=== PATIENT | female | born 2005 | race Caucasian/White ===

== ENCOUNTER 2024-08-20 11:32 | Emergency (ER) | payer MEDICAID, SELFPAY ==
[2024-08-20 11:40] VITALS: BP 113/76; PULSE 106; RESP 20; TEMP 37.5; O2SAT 98; BMI 17.7
--- NOTE | 2024-08-20 11:57 | ED.GENADULT ---
HPI - General Adult General Chief complaint: Ear/Nose/Throat Problem Stated complaint: body aches, sore throat, stuffy nose Time Seen by Provider: 08/20/24 11:37 History of Present Illness HPI narrative: This 18-year-old female comes in because of feeling upper respiratory symptoms for the past 3 weeks. She states that it began on the 28 of July with cough, body aches and pains, fever to 104? F, nasal congestion. She is no longer had any fevers but continues to have these other symptoms. She arrives here with normal vital signs except her heart rate is borderline tachycardic. She does not report shortness of breath. Related Data Home Medications ?Medication ?Instructions ?Recorded ?Confirmed No Known Home Medications 08/20/24 08/20/24 Previous Rx's ?Medication ?Instructions ?Recorded acetaminophen 300 mg-codeine 30 mg 1 tab PO Q6H PRN pain #15 tabs 08/20/24 tablet Allergies Allergy/AdvReac Type Severity Reaction Status Date / Time No Known Drug Allergies Allergy Verified 08/20/24 11:40 Review of Systems Status of ROS: Reports: 10 or more systems reviewed and unremarkable except as noted in History and below Narrative: Constitutional: No fevers, no weight gain or loss. Eyes: No discharge. No vision changes. HENT: No ear pain. Sore throat and nasal congestion. Cardiovascular: No chest pain, no palpitations. Respiratory: No shortness of breath, no wheezes. Persistent cough. Gastrointestinal: No abdominal pain, no vomiting, no diarrhea. Genitourinary: No dysuria, no hematuria. Musculoskeletal: Normal range of motion. Skin: No rashes, no pruritis. Neurological: No dizziness, weakness, sensory change, speech change. Endo/Heme/Allergies: No bruising or bleeding. No polydipsia. Pysch: no suicidality, no anxiety, no insomnia. All other systems reviewed and are negative. PFSH PFSH Social History Smoking Status: Current every day smoker Do you use any of these nicotine containing products: Vaping Products Second hand tobacco smoke exposure: No How often do you have a drink containing alcohol: never How often do you have six or more drinks on one occasion: Never AUDIT-C Alcohol total score: 0 Non-prescribed substance use: denies use service: No Exam Narrative: Exam Narrative: Constitutional: Well-developed, well-nourished, no acute distress. HEENT: Normocephalic, atraumatic. Pharyngeal erythema without exudate or tonsillar hypertrophy. Neck: Normal range of motion. Nontender. Supple. Heart: Regular. No murmurs. Normal rate. Intact distal pulses. Lungs: Clear to auscultation. No chest discomfort. No wheezes, rhonchi, or rales. Abdomen: Normal bowel sounds. Nontender. No rebound tenderness. Genitalia: Deferred. Back: No midline tenderness. Normal range of motion. Extremities: Normal range of motion. No injury. Skin: Intact. No rash. Warm. No erythema or pallor. Neurologic: No altered sensation. No weakness. Alert and oriented. Psychiatric: No suicidality. No anxiety or depression. No insomnia. Nursing notes and vitals signs are reviewed. Const: Vital Signs, click to edit/add: Vital Signs - 24 hr 08/20/24 11:40 Temperature 99.5 F Pulse Rate [Pulse Oximeter] 106 H Respiratory Rate 20 Blood Pressure [Ri ght Upper Arm] 113/76 Pulse Oximetry 98 Oxygen Delivery Me thod Room Air Course Vital Signs Vital signs: Initial Vital Signs Temperature 99.5 F 08/20/24 11:40 Temperature Source Temporal Artery Scan 08/20/24 11:40 Pulse Rate 106 H 08/20/24 11:40 Pulse Rhythm Regular 08/20/24 11:40 Respiratory Rate 20 08/20/24 11:40 Blood Pressure 113/76 08/20/24 11:40 Blood Pressure Mean 88 08/20/24 11:40 Blood Pressure Position Sitting 08/20/24 11:40 Pulse Oximetry 98 08/20/24 11:40 Oxygen Delivery Method Room Air 08/20/24 11:40 Vital Signs Temperature 99.5 F 08/20/24 11:40 Pulse Rate 106 H 08/20/24 11:40 Respiratory Rate 20 08/20/24 11:40 Blood Pressure 113/76 08/20/24 11:40 Pulse Oximetry 98 08/20/24 11:40 Oxygen Delivery Method Room Air 08/20/24 11:40 Temperature 99.5 F 08/20/24 11:40 Pulse Rate 106 H 08/20/24 11:40 Respiratory Rate 20 08/20/24 11:40 Blood Pressure 113/76 08/20/24 11:40 Pulse Oximetry 98 08/20/24 11:40 Oxygen Delivery Method Room Air 08/20/24 11:40 Medications Administered Medications: Discontinued Medications Generic Name Dose Route Start Last Admin Trade Name Floyd PRN Reason Stop Dose Admin Dexamethasone 10 mg 08/20/24 11:57 08/20/24 12:14 Dexamethasone 10 Mg/Ml Inj PO 08/20/24 11:58 10 mg ONCE ONE Administration Medical Decision Making MDM Narrative Medical decision making narrative: This patient comes in with upper respiratory symptoms for the past 3 weeks. Nasal pharyngeal swab is positive for influenza A. The patient did receive an oral dose of dexamethasone here. I recommended using [id number] medicines as needed and directed. I did prescribe a few tablets of Tylenol 3 for additional cough suppressant in pain relief. Lab Data Labs: Lab Results 08/20/24 Range/Units 11:30 SARS-CoV-2 (PCR) Negative SARS-CoV-2 (Negative) Influenza Type A (PCR) POSITIVE PCR FLU A A (Negative) Influenza Type B (PCR) Negative PCR FLU B (Negative) RSV (PCR) Negative PCR RSV (Negative) Discharge Plan Discharge Clinical Impression: Influenza A Patient Disposition: Home, Self-Care Condition: Stable Additional Instructions: Take medication as needed and directed. Follow up with MD or return if worsening. Prescriptions: New acetaminophen-codeine 300-30 mg tablet 1 tab PO Q6H PRN (Reason: pain) Qty: 15 0RF No Action No Known Home Medications Stand Alone Forms: [employer] Info Instructions
[2024-08-20] MEDS: dexAMETHasone 10 MG/ML inj PO (12:14)
[2024-08-20 12:20] LABS: PCR FLU A POSITIVE PCR FLU A (Negative); PCR FLU B Negative PCR FLU B (Negative); PCR RSV Negative PCR RSV (Negative); SARS PCR* Negative SARS-CoV-2 (Negative)
--- OUTSIDE RECORDS SUMMARY | 2024-08-20 12:43 | XMS_ITS | Clinical Summary ---
Author Organization [facility] Address [address] [place] [address] Care Team Providers Care Beekeeper Name Role Phone Elsewhere, Pcp Primary Care Provider Unavailabl e Source Comments Patient records contain information from all sites at [facility]. For routine questions regarding patient records, call [phone] during business hours, M-F 8:00 AM - 5:00 PM Central Time. Record requests for emergency care only can be directed to [phone] at any time.[facility] Allergies Active Allergy Reactions Criticality Noted Date Comments Bee Venom Protein (Honey Bee) Swelling 2014 Medications ibuprofen (for_ADVIL,MOTRI N) 200 mg tablet Take 1 tablet by mouth every 4 (four) hours as needed. 06/17/2015 Active Active Problems Problem Noted Date Diagnosed Date Depression Major One Episode Full Remission 01/16 Overview (12/08/2016): Depression Major One Episode Full Remission Immunizations Immunization Administration Dates Next Due DTaP, Unspecified 04/02/2010, 6,02/27/2005,2004,2004 HepB Pediatric/Adolescent 2004 HepB, Unspecified 02/27/2005,2004,09/04/19 Hib (HbOC) (discontinued) 12/10/2005,06/2005,2004,2004 IPV 04/02/2010, 5,2004,2004 Influenza Split 05/05/2013 Influenza, Unspecified 06/26/2016 MMR 04/02/2010,09/18/2005 PCV13 04/02/2010 CURRY 04/02/2010,12/10/2005 influenza vaccine quad (FLUZONE/FLUARIX) (6 months and older)(PF) 07/31/2014 Social History Tobacco Use Types Packs/Day Years Used Date Smoking Tobacco: Never Smokeless Tobacco: Never Tobacco Cessation:Counseling Given: Not Answered Alcohol Use Standard Drinks/Week Comments Not Currently 0 (1 standard drink = 0.6 oz pur e alcohol) Nutrition Answer Date Recorded Nutrition: EVOO Fat Source Unknown 10/01 Nutrition: Servings of Fruits/Vegetables per Day Not on file 10/02/2023 Dental Answer Date Recorded Dental: Regular Dentist Unknown 10/02/19 24 Comments Unknown Sex and Gender Information Value Date Recorded Sex Assigned at Not on file Legal Sex Female 6:51 AM GRADES 1 THROUGH 6 TEACHER Gender Identity Not on file Sexual Orientation Not on file Last Filed Vital Signs Vital Sign Reading Time Taken Comments Blood Pressure 118/67 10/02/2023 7:30 PM CDT Pulse 83 10/02/2023 7:30 PM CDT Temperature 36.8 C (98.2 F) 10/02/2023 6:46 PM CDT Respiratory Rate 16 10/02/2023 7:00 PM CDT Oxygen Saturation 100% 10/02/2023 7:30 PM CDT Inhaled Oxygen Concentration - - Weight 43 kg (94 lb 12.8 oz) 09/13/2017 7:34 PM GRADES 1 THROUGH 6 TEACHER Height 162.6 cm (5' 4) 09/13/2017 7:34 PM GRADES 1 THROUGH 6 TEACHER Body Mass Index 16.27 09/13/2017 7:34 PM GRADES 1 THROUGH 6 TEACHER Body Mass Index Percentile 14.12% 09/13/2017 7:3 4 PM GRADES 1 THROUGH 6 TEACHER Growth Chart: CDC (Girls, 2- 20 Years) Plan of Treatment Health Maintenance Due Date Last Done Comments Chlamydia and Gonorrhea Screening 2004 Depression Monitoring (PHQ-9) 2004 HIV Screening 2004 Hearing Screening during Well Child Visit 2004 Hepatitis C Screening 2004 TB Screening during Well Child Visit 2004 1 week Well Child Check-Up 2004 1 month Well Child Check-Up 2004 2 month Well Child Check-Up 2004 4 month Well Child Check-Up 2004 6 month Well Child Check-Up 01/30/2005 9 month Well Child Check-Up 05/02/2005 12 month Well Child Check-Up 08/02/2005 15 month Well Child Check-Up 10/31/2005 18 month Well Child Check-Up 01/30/2006 2 year Well Child Check-Up 08/02/2006 30 month Well Child Check-Up 01/30/2007 3 year Well Child Check-Up 08/02/2007 Well Child Check-Up Completed in Past Year 08/02/2007 4 year Well Child Check-Up 08/02/2008 5 year Well Child Check-Up 08/02/2009 6 year Well Child Check-Up 08/02/2010 7 year Well Child Check-Up 08/02/2011 8 year Well Child Check-Up 08/02/2012 9 year Well Child Check-Up 08/02/2013 10 year Well Child Check-Up 08/02/2014 11 year Well Child Check-Up 08/02/2015 12 year Well Child Check-Up 08/02/2016 13 year Well Child Check-Up 08/02/2017 14 year Well Child Check-Up 08/02/2018 Vision Screening during Well Child Visit 2018 15 year Well Child Check-Up 08/02/2019 16 year Well Child Check-Up 08/02/2020 17 year Well Child Check-Up 08/02/2021 18 year Well Child Check-Up 08/02/2022 19 year Well Child Check-Up 08/02/2023 COVID-19 Vaccine ( season) 2024 Influenza Vaccine (#1) 2024 , 06/26/2016, 07/31/2014, Additional history exists Depression Monitoring (PHQ-9 for quality tracking) 07/19/2024 20 year Well Child Check-Up 08/02/2024 Well Child Check-Up (WCC) 08/02/2024 DTaP,Tdap,and Td Vaccines (7 - Td or Tdap) 02/23/2028 02/22/2018, 04/02/2010, 04/02/2010, Additional history exists Hepatitis B Vaccines Completed 02/27/2005, 02/27/2005, 2004, Additional history exists IPV Vaccines Completed 04/02/2010, 02/16, 02/27/2005, Additional history exists MMR Vaccines Completed 04/02/2010, 09/18/2005 Pneumococcal vaccine (0-49 years) Aged Out 04/02/2010 No longer eligible based on patient's age to complete this topic Varicella Vaccines Completed 04/02/2010, 12/10/2005 HPV Vaccines Completed 04/23/2023, 06/07/2019 Meningococcal Vaccine Completed 04/23/2023, 018 Anemia/Iron Deficiency Screening During Well Child Visit (if High Risk Menstruating Female) Completed 10/02/2023 Procedures Procedure Name Priority Date/Time Associated Diagnosis Comments CBC WITH DIFFERENTIAL, B STAT 10/02/2023 7:14 PM CDT from Last 3 Months or Most Recently Relevant to Health Maintenance Results * (ABNORMAL) CBC with Differential, Blood (10/02/2023 7:14 PM CDT) Hemoglobin 13.3 11.6 - 15.0 g/dL 10/02/2023 7:22 PM CDT CNFL Hematocrit 38.0 35.5 - 44.9 % 10/02/2023 7:22 PM CDT CNFL Erythrocytes 4.44 3.92 - 5.13 x10(12)/L 10/02/2023 7:22 PM CDT CNFL MCV 85.6 78.2 - 97.9 fL 10/02/2023 7:22 PM CDT CNFL RBC Distrib Width 11.8(L) 12.2 - 16.1 % 10/02/2023 7:22 PM CDT CNFL Platelet Count 255 157 - 371 x10(9)/L 10/02/2023 7:22 PM CDT CNFL Leukocytes 7.0 3.4 - 9.6 x10(9)/L 10/02/2023 7:22 PM CDT CNFL Neutrophils 4.24 1.56 - 6.45 x10(9)/L 10/02/2023 7:22 PM CDT CNFL Lymphocytes 1.98 0.95 - 3.07 x10(9)/L 10/02/2023 7:22 PM CDT CNFL Monocytes 0.58 0.26 - 0.81 x10(9)/L 10/02/2023 7:22 PM CDT CNFL Eosinophils 0.13 0.03 - 0.48 x10(9)/L 10/02/2023 7:22 PM CDT CNFL Basophils 0.04 0.01 - 0.08 x10(9)/L 10/02/2023 7:22 PM CDT CNFL Blood (Blood, Venous) 10/02/2023 7:14 PM CDT 10/02/2023 7:18 PM CDT Janet Moser APRN C.N.P. LAB BLOOD ADD-O N Final Result [facility] [address] [place] [id number], [facility] CNFL [facility] in [address] [address] from Last 3 Months or Most Recently Relevant to Health Maintenance Insurance [facility] Care Teams Beekeeper Relationship Specialty Start Date End Date Elsewhere, Pcp PCP - General Head Neck Surgeon 09/04/19
--- OUTSIDE RECORDS SUMMARY | 2024-08-20 12:43 | XMS_ITS | Clinical Summary ---
Author Organization [facility] Address [place], [place] [address] Care Team Providers Care Manager Professional Development Name Role Phone Ayala Martinez DO Primary Care Provider Allergies Active Allergy Reactions Criticality Noted Date Comments Bee Venom Protein (Honey Bee) Throat Swelling/Closing High 07/31/2014 Medications methylPREDNISol one (Medrol, Alphonso,) 4 mg tabletIndicatio ns:Left wrist pain Take by mouth as instructed per packaging. 21 Tablet 4 Active Active Problems No known active problems Encounters Date Type Department Care Team Description 06/28/2024 Telephone [facility] [address] [place] [address] Prudence Jeronimo PharmD Abnormal Lab Results 06/27/2024 6:49 PM PRODUCTION TEAM LEADER - 06/27/2024 7:46 PM PRODUCTION TEAM LEADER Emergency [facility] [address] [place] [address] Margarita Naranjo PA Cystitis (Primary Dx); Abdominal pain, unspecified abdominal location Discharge Disposition: Home Self Care 06/27/2024 Travel from Last 3 Months Immunizations Name Administration Dates Next Due DTaP-HIB (TriHIBIT) 12/10/2005 [id number] (Pediarix) 02/27/2005,2004,0 2004 Dtap-5 Pertussis Antigens 04/02/2010 HIB HbOC (HibTITER) 12/10/2005, 5,2004,10/24 HPV 9 (Gardasil 9) 04/23/2023,06/07/2019 Hepatitis A (Peds) 04/23/2023,02/22/2018 Hepatitis B, Unspecified 02/27/2005,2004,0 2004 Inactivated Polio Vaccine 04/02/2010,06/2005,2004,10/24 Influenza Virus, Unspecified 05/05/2013 Influenza, IIV4 04/23/2023,06/26/2016,07/31/2014 MENINGOCOCCAL VACCINE 2 VIAL [id number] (MENVEO) 04/23/2023,02/22/2018 MMR 04/02/2010,09/18/2005 Pneumococcal conj 13-Valent (Prevnar 13) 04/02/2010 Polio Virus, Unspecified 04/02/2010 Tdap 02/22/2018 Tdap, Unspecified 04/02/2010, 6,02/27/2005,12/29,2004 Varicella Vaccine 04/02/2010,12/10/2005 Family History Medical History Relation Name Comments Other Mother SVT and 1st deg ree AV block Relation Name Status Comments Mother Alive Social History Tobacco Use Types Packs/Day Years Used Date Smoking Tobacco: Never Smokeless Tobacco: Never Tobacco Cessation:Counseling Given: Yes Alcohol Use Standard Drinks/Week Comments Not Asked 0 (1 standard drink = 0.6 oz pur e alcohol) occ PHQ-2 Answer Date Recorded PHQ-2 TOTAL SCORE 3 04/23/2023 Social Connections Answer Date Recorded Frequency of Communication with Friends and Fami ly Not on file 07/15/2021 Financial Resource Strain Answer Date R ecorded Difficulty of Paying Living Expenses Not on file 07/15/2021 Difficulty of Paying Living Expenses Not on file 07/15/2021 Interpersonal Safety Answer Date Record ed Are you being hit, kicked, p ushed or yelled at (see row info)? No 06/27/2024 Interpersonal Safety Abuse 12 - 18 Not on file 06/27/2024 Interpersonal Safety Ambulatory Vulnerability No t on file 06/27/2024 Comments No Sex and Gender Information Value Date Recorded Sex Assigned at Not on file Legal Sex Female 10:44 PM CDT Gender Identity Not on file Sexual Orientation Not on file Obstetrics History Last Filed Vital Signs Vital Sign Reading Time Taken Comments Blood Pressure 120/66 06/27/2024 5:20 PM PRODUCTION TEAM LEADER Pulse 73 06/27/2024 5:20 PM PRODUCTION TEAM LEADER Temperature 37 C (98.6 F) 06/27/2024 5:20 PM PRODUCTION TEAM LEADER Respiratory Rate 16 06/27/2024 5:20 PM PRODUCTION TEAM LEADER Oxygen Saturation 99% 06/27/2024 5:20 PM PRODUCTION TEAM LEADER Inhaled Oxygen Concentration - - Weight 55.4 kg (122 lb 1.6 oz) 06/27/2024 5:19 P M PRODUCTION TEAM LEADER Height 167.6 cm (5' 6) 06/27/2024 7:11 PM PRODUCTION TEAM LEADER Body Mass Index 19.71 06/27/2024 5:19 PM PRODUCTION TEAM LEADER Plan of Treatment Health Maintenance Due Date Last Done Comments HIV for age 15-65 2019 BMI (ht and wt on same day) for age 18+ 2022 Hepatitis C screening for age 18-79 2022 COVID-19 vaccine series () 03/19/2024 Influenza for age 9-49 03/19/2024 , 06/26/2016, 07/31/2014, Additional history exists Depression screening for age 12+ 04/23/2024 04/23/2023, 06/07/2019, 06/07/2019, Additional history exists Well Child Check for age 3-20 04/23/2024 04/23/2023, 03/03/2018 Chlamydia for age 16-24 06/27/2025 06/27/2024 Tetanus booster 02/23/2028 02/22/2018, 03/19, 12/10/2005, Additional history exists Pneumococcal series for age 6-49 Aged Out 04/02/2010 No longer eligible based on patient's age to complete this topic Tdap Completed 02/22/2018, 03/19, 12/10/2005, Additional history exists HPV series for age 9-26 Completed 04/23/2023, 06/07 Meningococcal series for age 11-21 Completed 04/23/2023, 02/22/2018 Procedures Procedure Name Priority Date/Time Associated Diagnosis Comments GC CHLAMYDIA TRACH PROBE STAT 06/27/2024 7:06 PM PRODUCTION TEAM LEADER TRICHOMONAS, MONIK, AND BACTERIAL VAGINOSIS BY JUSTIN STAT 06/27/2024 7:06 PM PRODUCTION TEAM LEADER URINE CULTURE LAVONNE 06/27/2024 5:36 PM PRODUCTION TEAM LEADER URINALYSIS MICROSCOPIC STAT 06/27/2024 5:36 PM PRODUCTION TEAM LEADER URINE STAT 06/27/2024 5:36 PM PRODUCTION TEAM LEADER UA W/ SEDIMENT EXAM REFLEXED PER CRITERIA STAT 06/27/2024 5:36 PM PRODUCTION TEAM LEADER from Last 3 Months Results * (ABNORMAL) TRICHOMONAS, MONIK, AND BACTERIAL VAGINOSIS BY JUSTIN (06/27/2024 7:06 PM PRODUCTION TEAM LEADER) MONIK SPECIES Positive(A) Negative 06/28/20 24 7:05 PM PRODUCTION TEAM LEADER [facility] MONIK GLABRATA Negative Negative 06/28/2024 7:05 PM PRODUCTION TEAM LEADER [facility] TRICHOMONAS VVA Negative Negative 4 7:05 PM PRODUCTION TEAM LEADER [facility] BACTERIAL VAGINOSIS Negative Negative 06/28/2024 7:05 PM PRODUCTION TEAM LEADER [facility] Other VAGINAL SWAB / Unknown Non-Blood / Unknown 06/27/2024 7:06 PM PRODUCTION TEAM LEADER 06/27/2024 7:58 PM PRODUCTION TEAM LEADER us Margarita QUINONEZ MICROBIOLOGY Final Resul t [facility] [address] [place] [address], * GC CHLAMYDIA TRACH PROBE (06/27/2024 7:06 PM PRODUCTION TEAM LEADER) CHLAMYDIA PROBE Negative 4 7:41 PM PRODUCTION TEAM LEADER [facility] N GONORRHOEAE PROBE Negative 06/28/2024 7:41 PM PRODUCTION TEAM LEADER [facility] Other VAGINAL SWAB / Unknown Non-Blood / Unknown 06/27/2024 7:06 PM PRODUCTION TEAM LEADER 06/27/2024 7:58 PM PRODUCTION TEAM LEADER us Margarita QUINONEZ MICROBIOLOGY Final Resul t [facility] [address] [place] [address], * (ABNORMAL) URINALYSIS MICROSCOPIC (06/27/2024 5:36 PM PRODUCTION TEAM LEADER) RBC 51-100(A) 0-2, None Seen /HPF 06/27/2024 7:27 PM PRODUCTION TEAM LEADER [facility] WBC 3-5 0-2, 3-5, None Seen /HPF 06/27/2024 7:27 PM PRODUCTION TEAM LEADER [facility] BACTERIA Moderate(A) None Seen, Rare, Few Bacteria/ HPF 06/27/2024 7:27 PM PRODUCTION TEAM LEADER [facility] EPITHELIAL CELLS Few None Seen, Few Epi/HPF 06/27/2024 7:27 PM PRODUCTION TEAM LEADER [facility] Mucus Present 06/27/2024 7:27 PM PRODUCTION TEAM LEADER [facility] Urine URINE SPECIMEN / Unknown Non-Blood / Unknown 06/27/2024 5:36 PM PRODUCTION TEAM LEADER 06/27/2024 5:39 PM PRODUCTION TEAM LEADER us Stf Ed Triage URINE Final Result Performing Organization Address City/[facility]/ZIP Co de Phone Number [facility] [address] [place] [phone] * URINE CULTURE (06/27/2024 5:36 PM PRODUCTION TEAM LEADER) CULTURE 10-50,000 CFU/mL of multiple organisms, probable contaminants 06/28/2024 5:03 PM PRODUCTION TEAM LEADER [facility] Urine URINE SPECIMEN / Unknown Non-Blood / Unknown 06/27/2024 5:36 PM PRODUCTION TEAM LEADER 06/27/2024 5:39 PM PRODUCTION TEAM LEADER us Margarita QUINONEZ MICROBIOLOGY Final Resul t [facility] [address] [place] [address], [place] * (ABNORMAL) UA W/ SEDIMENT EXAM REFLEXED PER CRITERIA (06/27/2024 5:36 PM PRODUCTION TEAM LEADER) COLOR Yellow Yellow Color 06/27/2024 5:48 PM [facility] CLARITY Clear Clear Clarity 06/27/2024 5:48 PM [facility] SPECIFIC GRAVITY,URINE >=1.030(A) 1.010, 1.015, 1.020, 1.025 06/27/2024 5:48 PM [facility] PH,URINE 5.5 6.0, 7.0, 8.0, 5.5, 6.5, 7.5, 8.5 06/27/2024 5:48 PM [facility] UROBILINOGEN, QUALITATIVE Normal Normal EU/dl 06/27/2024 5:48 PM [facility] PROTEIN, URINE 100(A) Negative mg/dL 06/27/2024 5:48 PM [facility] GLUCOSE, URINE Negative Negative mg/dL 06/27/2024 5:48 PM [facility] KETONES,URINE Trace(A) Negative mg/dL 06/27/2024 5:48 PM [facility] BILIRUBIN,URI NE Negative Negative 06/27/2024 5:48 PM [facility] OCCULT BLOOD,URINE Large(A) Negative 06/27/2024 5:48 PM [facility] NITRITE Negative Negative 06/27/2024 5:48 PM [facility] LEUKOCYTE ESTERASE Negative Negative 06/27/2024 5:48 PM [facility] Urine URINE SPECIMEN / Unknown Non-Blood / Unknown 06/27/2024 5:36 PM PRODUCTION TEAM LEADER 06/27/2024 5:39 PM PRODUCTION TEAM LEADER us Stf Ed Triage URINE Final Result [facility] [address] [place] [phone] * URINE (06/27/2024 5:36 PM PRODUCTION TEAM LEADER) ,URIN E Negative Negative 06/27/2024 5:48 PM PRODUCTION TEAM LEADER [facility] Urine URINE SPECIMEN / Unknown Non-Blood / Unknown 06/27/2024 5:36 PM PRODUCTION TEAM LEADER 06/27/2024 5:39 PM PRODUCTION TEAM LEADER us St Ed Triage URINE Final Result [facility] [address] [place] [address] from Last 3 Months Insurance [facility] Member Subscriber Plan / Payer (Ef fective 2024-Present) Name:Patricia Gallego Relation to Subscriber:Self Name:Patricia Gallego Payer ID:Not on file Group ID:Not on file Type:Not on file Address: [employer] Care Teams Manager Professional Development Relationship Specialty Start Date End Date Ayala Martinez DO [address] [place] [address] PCP - General Family Practice 04/23/23
== END 2024-08-20 12:52 | disposition home or self-care (01) ==
LOC: ED 12:41
PROVIDERS: Emergency Provider Emergency Medicine Emergency Medical Services
DX: J10.1 Influenza due to other identified influenza virus with other respiratory manifestations (principal); R05.9 Cough, unspecified
CPT/HCPCS: 87631; 99283; 99284; J1100

== ENCOUNTER 2024-09-29 06:58 | Outpatient (CLI) | payer OTHER, MEDICAID, SELFPAY ==
--- NOTE | 2024-09-29 07:15 | CRLHL7_ITS ---
For Patients: As a result of the Century Cures Act, medical imaging exams and procedure reports are released immediately into your electronic medical record. You may view this report before your referring provider. If you have questions, please contact your health care provider. OBSTETRICAL ULTRASOUND, 09/29/2024 CLINICAL INDICATION: Dating and viability. LMP: 07/27/2024 ASH by LMP: 05/03/2025 Gestational age: 9 weeks 1 day PREVIOUS ULTRASOUND: No TECHNIQUE: Real-time mathis-scale imaging of the fetus was performed transvaginal. FINDINGS: CRL: 2.3 cm, 9* weeks 0 days; ASH 05/04/2025 heart rate: 173 BPM Gestational sac: 2.9 cm, appears within normal limits Yolk sac: 3.8 mm, appears within normal limits Right ovary: 3.7 x 3.3 x 2.5 cm, CL Left ovary: 3.1 x 1.4 x 1.9 cm IMPRESSION: 1. Single living intrauterine with sonographic gestational age of 9 weeks 0 days and sonographic due date of 05/04/2025. 2. Subchorionic hemorrhage measures 1.9 x 0.6 x 0.5 cm. 3. Corpus luteal cyst of right ovary. KRISHAN BEST M.D. Diagnostic Radiologist [email or web address] Transcribed: 11:[address]/Dictated by: Krishan Best MD @ 09/29/2024 10:07:00 AM (Electronically Signed)
== END 2024-09-29 06:59 | disposition home or self-care (01) ==
PROVIDERS: Visit Provider Physician Assistant
DX: Z34.91 Encounter for supervision of normal pregnancy, unspecified, first trimester (principal); O20.9 Hemorrhage in early pregnancy, unspecified; O34.81 Maternal care for other abnormalities of pelvic organs, first trimester; N83.11 Corpus luteum cyst of right ovary; Z3A.09 9 weeks gestation of pregnancy
CPT/HCPCS: 76817; 83021; 86592; 86703; 86704; 86706; 86762; 86787; 86803; 86850; 86900; 86901; 87340; 87491; 87591

== ENCOUNTER 2024-10-27 15:09 | Outpatient (CLI) | payer BC, SELFPAY | END 2024-10-27 15:10 | disposition home or self-care (01) | PROVIDERS: Visit Provider Obstetrics & Gynecology | DX: Z34.02 Encounter for supervision of normal first pregnancy, second trimester (principal) | CPT/HCPCS: 87086 ==

== ENCOUNTER 2024-11-23 18:53 | Emergency (ER) | payer BC, SELFPAY ==
[2024-11-23 19:11] VITALS: BP 111/76; PULSE 94; RESP 16; TEMP 37.1; O2SAT 99; BMI 18.9
--- NOTE | 2024-11-23 20:13 | CRLHL7_ITS ---
For Patients: As a result of the Century Cures Act, medical imaging exams and procedure reports are released immediately into your electronic medical record. You may view this report before your referring provider. If you have questions, please contact your health care provider. INDICATION: Upper abdominal pain, worse on the right. patient. COMPARISON: None. TECHNIQUE: Real time mathis scale imaging and color Doppler analysis was performed of the right upper quadrant. FINDINGS: Liver: The liver measures 14.7 cm in length. Normal echogenicity. No focal liver lesions identified. Gallbladder: No stones or sludge. No wall thickening or pericholecystic fluid. Negative sonographic Reyes sign. Bile ducts: The common bile duct measures 2 mm in diameter. Pancreas: Normal where seen. Right kidney: The right kidney measures 13.1 cm in length. No hydronephrosis, calculus, or mass. Vascular: Normal caliber proximal abdominal aorta. The hepatic IVC appears patent. The main portal vein is patent with normal flow direction. IMPRESSION: Unremarkable exam. Dictated by Laura Aguilar MD @ 11/23/2024 9:42:41 PM (Electronically Signed)
[2024-11-23 20:27] LABS: Appearance Urine Slightly Cloudy (Clear); Bilirubin Urine Negative (Negative); Blood Urine Negative (Negative); Color Urine Yellow (Yellow); Glucose Urine Negative (Negative); Ketones Urine Negative (Negative); Leukocyte Esterase Urine 1+ (Negative); Nitrite Urine Negative (Negative); Protein Urine Negative (Negative); Specific Gravity Urine >= 1.030 (1.000-1.030); Urobilinogen Urine 0.2 (0.2-1.0)
[2024-11-23 20:29] LABS: Basophils Absolute Auto 0.02 K/uL (0.00-0.30); Basophils Percent Auto 0.2 % (0.0-3.0); Hematocrit 34.4 % (33.0-51.0); Hemoglobin* 12.2 gm/dL (12.0-16.0); Immature Granulocytes Abs Auto 0.02 K/uL (0.00-0.30); Immature Granulocytes Pct Auto 0.2 %; Lymphocytes Percent Auto 13.5 % (20-44); Mean Corpuscular HGB Conc 36 gm/dL (32-36); Mean Corpuscular Hemoglobin 31 pg (26-34); Mean Corpuscular Volume 87 fL (80-100); Monocytes Percent Auto 6.5 % (0.0-11.0); Neutrophils Percent Auto 78.6 % (42.0-72.0); Platelet Count* 266 K/uL (140-440); RDW Coefficient of Variation % 12.8 % (11.5-15.5); Red Blood Count 3.95 m/uL (4.00-5.20); White Blood Count* 10.29 K/uL (4.50-11.00)
[2024-11-23 20:35] LABS: Slide Review Reflex No
[2024-11-23 20:38] LABS: Albumin* 4.6 g/dL (3.3-5.0); Chloride* 103 mmol/L (96-114); Sodium* 136 mmol/L (135-149)
[2024-11-23 20:39] LABS: Potassium* 3.4 mmol/L (3.6-5.1)
[2024-11-23 20:41] LABS: Alanine Aminotransferase* 16 U/L (4-35); Alkaline Phosphatase* 46 U/L (40-150); Anion Gap 9 mEq/L (7-15); Aspartate Amino Transferase* 25 U/L (12-35); Bilirubin Direct* 0.2 mg/dL (0.0-0.5); Bilirubin Total* 0.3 mg/dL (0.1-1.5); Blood Urea Nitrogen* 8 mg/dL (5-24); Calcium* 9.6 mg/dL (8.4-10.6); Carbon Dioxide* 24 mmol/L (20-32); Creatinine* 0.4 mg/dL (0.5-1.5); Est. Creatinine Clearance* 199.52; Estimated Glomerular Filt Rate 145 ml/min; Glucose* 79 mg/dL (60-115); Total Protein* 7.6 g/dL (6.0-8.3)
[2024-11-23 20:42] LABS: Bacteria Urine Many; Mucus Urine Moderate; RBC Urine 0-2 (0-2); Squamous Epithelial Cell Urine Moderate (None-Few)
--- NOTE | 2024-11-23 20:56 | ED_ITS ---
HPI - Abdominal Pain General Date Seen: 11/23/24 <Carlitos Solo DO - Last Filed: 11/23/24 21:50> Chief Complaint: Abdominal Pain <Carlitos Valladares Edil DO - Last Filed: 11/23/24 21:50> Stated Complaint: 17 weeks , stabbing/ cramping on both side <Carlitos Solo DO - Last Filed: 11/23/24 21:50> Time Seen by Provider: 11/23/24 20:04 <Carlitos Solo DO - Last Filed: 11/23/24 21:50> Source: patient <Carlitos Solo DO - Last Filed: 11/23/24 21:50> Mode of arrival: ambulatory <Carlitos Solo DO - Last Filed: 11/23/24 21:50> Limitations: no limitations <Carlitos Jacquelyn Solo DO - Last Filed: 11/23/24 21:50> History of Present Illness HPI narrative: patient is a 19-year-old female who is 17 weeks along presenting to the emergency department for upper abdominal pain. States today she started having stabbing pain in the upper abdominal region. Initially starts as cramping sensation with episodes of stabbing. Seems to be on both sides of the upper abdomen. Pain started this morning. Has not had pain like this before. Has not had any issues with the . She spoke to women's health. [place] was recommended to come to the emergency department. Has not had any previous abdominal surgeries. No other medical issues. Denies fevers, chills, weakness, numbness, headache, chest pain, shortness of breath. Has been eating and drinking without issue. Has not had any nausea. Denies dysuria or vaginal bleeding. No other concerns noted. <Carlitos Solo DO - Last Filed: 11/23/24 21:50> Related Data Home Medications: Home Medications ?Medication ?Instructions ?Recorded ?Confirmed CCH-vymn-CS-omega 3-fat com #1 27 cap PO 09/29/24 11/24/24 mg-1 mg-300 mg capsule <Carlitosanabel Solo DO - Last Filed: 11/23/24 21:50> Allergies/Adverse Reactions: Allergies Allergy/AdvReac Type Severity Reaction Status Date / Time No Known Drug Allergies Allergy Verified 11/24/24 12:55 <Carlitos Solo DO - Last Filed: 11/23/24 21:50> Review of Systems Status of ROS Reports: 10 or more systems reviewed and unremarkable except as noted in History and below <Carlitos Solo DO - Last Filed: 11/23/24 21:50> [facility] Social History: Social History Narrative: Occupation: Nurse's aide. Marital status: Single. Christianity/cultural needs: no. Chemical or radiation exposure: no. Pre- tobacco use: Vaping Pre- alcohol use: no. Current tobacco use: Yes, vaping Current alcohol use: no. Recreational drug use: no. Dietary restrictions: no. Blood transfusion acceptable in an emergency: yes. PSYCHOSOCIAL HISTORY: History of depression or currently depressed: Denies. Current or past physical, emotional, or sexual mistreatment: Denies. Problems that will make it hard to make it to appointments: Denies. What is your current living situation?: I presently have a place to live Problems where you live: no known problems In the past 12 months, utilities in danger of being shut off: no In past 12 months, lack of transportation kept you from medical appts, meetings, work, or getting things needed for daily living: no In the past 12 mos, have been you worried that your food would run out before you had money to buy more?: never true In the past 12 mos, the food you bought just didn't last and you didn't have money to buy more?: never true Smoking Status: Current every day smoker Do you use any of these nicotine containing products: Vaping Products Second hand tobacco smoke exposure: No How often do you have a drink containing alcohol: never How often do you have six or more drinks on one occasion: Never AUDIT-C Alcohol total score: 0 Non-prescribed substance use: denies use How often does anyone, including family, friends and others, physically hurt you : never How often does anyone, including family, friends and others, insult or talk down to you: never How often does anyone, including family, friends and others, threaten you with harm: never How often does anyone, including family, friends and others, scream or curse at you: never service: No <Carlitos Solo DO - Last Filed: 11/23/24 21:50> Exam Narrative: Exam Narrative: Const: Well-nourished, Well-developed, in mild distress Eyes: PERRL, no conjunctival injection, and symmetrical lids HENT: Atraumatic external nose and ears. Moist mucous membranes. Neck: Symmetric, trachea midline, No thyromegaly. CVS: RRR, No murmurs or gallops. Peripheral pulses 2+ and equal in all extremities RESP: Unlabored respiratory effort. Clear to auscultation bilaterally. GI: Mild right upper quadrant tenderness,Nondistended, No rebound or guarding. negative Reyes sign MSK:Extremities w/o deformity, Normal Active ROM Skin: Warm, Dry. No rashes or lesions. Neuro: Normal Muscle tone, No focal neurological deficits. Psych: Awake, Alert, & Oriented x3. Appropriate mood and affect. <Carlitos Solo DO - Last Filed: 11/23/24 21:50> Const: Vital Signs, click to edit/add: Vital Signs - 24 hr 11/23/24 19:11 Temperature 98.7 F Pulse Rate [Pulse Oximeter] 94 Respiratory Rate 16 Blood Pressure [Ri ght Upper Arm] 111/76 Pulse Oximetry 99 Oxygen Delivery Me thod Room Air <Carlitos Solo DO - Last Filed: 11/23/24 21:50> Vital Signs, click to edit/add: Vital Signs - 24 hr 11/23/24 19:11 Temperature 98.7 F Pulse Rate [Pulse Oximeter] 94 Respiratory Rate 16 Blood Pressure [Ri ght Upper Arm] 111/76 Pulse Oximetry 99 Oxygen Delivery Me thod Room Air <Bernabe Keen MD - Last Filed: 11/24/24 15:10> Course Course ED Course: addendum 11/24/2024 urine culture came back from lab today. It shows [id number] colony-forming units per meal of Gram-positive cocci. Urinalysis obtained in the ER yesterday by clean catch showed signs of skin contamination. I suspect that these Gram- positive cocci are likely a contaminant from the patient's peritoneum. I contacted the patient at home. She says she is feeling much better today. I advised that she follow-up with her Ob clinic next week for re-evaluation to make sure she is not having true back to urea because of asymptomatic bacteria can be associated with complications. She understands my recommendation for follow-up in says that she will follow-up. Precautions for return to the ER reviewed. <Bernabe Keen MD - Last Filed: 11/24/24 15:10> Vital Signs Vital signs: Initial Vital Signs Temperature 98.7 F 11/23/24 19:11 Temperature Source Temporal Artery Scan 11/23/24 19:11 Pulse Rate 94 11/23/24 19:11 Respiratory Rate 16 11/23/24 19:11 Blood Pressure 111/76 11/23/24 19:11 Blood Pressure Mean 87 11/23/24 19:11 Blood Pressure Position Sitting 11/23/24 19:11 Pulse Oximetry 99 11/23/24 19:11 Oxygen Delivery Method Room Air 11/23/24 19:11 Vital Signs Temperature 98.7 F 11/23/24 19:11 Pulse Rate 94 11/23/24 19:11 Respiratory Rate 16 11/23/24 19:11 Blood Pressure 111/76 11/23/24 19:11 Pulse Oximetry 99 11/23/24 19:11 Oxygen Delivery Method Room Air 11/23/24 19:11 Temperature 98.7 F 11/23/24 19:11 Pulse Rate 94 11/23/24 19:11 Respiratory Rate 16 11/23/24 19:11 Blood Pressure 111/76 11/23/24 19:11 Pulse Oximetry 99 11/23/24 19:11 Oxygen Delivery Method Room Air 11/23/24 19:11 <Carlitos Solo DO - Last Filed: 11/23/24 21:50> Initial Vital Signs Temperature 98.7 F 11/23/24 19:11 Temperature Source Temporal Artery Scan 11/23/24 19:11 Pulse Rate 94 11/23/24 19:11 Respiratory Rate 16 11/23/24 19:11 Blood Pressure 111/76 11/23/24 19:11 Blood Pressure Mean 87 11/23/24 19:11 Blood Pressure Position Sitting 11/23/24 19:11 Pulse Oximetry 99 11/23/24 19:11 Oxygen Delivery Method Room Air 11/23/24 19:11 Vital Signs Temperature 98.7 F 11/23/24 19:11 Pulse Rate 94 11/23/24 19:11 Respiratory Rate 16 11/23/24 19:11 Blood Pressure 111/76 11/23/24 19:11 Pulse Oximetry 99 11/23/24 19:11 Oxygen Delivery Method Room Air 11/23/24 19:11 Temperature 98.7 F 11/23/24 19:11 Pulse Rate 94 11/23/24 19:11 Respiratory Rate 16 11/23/24 19:11 Blood Pressure 111/76 11/23/24 19:11 Pulse Oximetry 99 11/23/24 19:11 Oxygen Delivery Method Room Air 11/23/24 19:11 <Bernabe Keen MD - Last Filed: 11/24/24 15:10> MDM - Abdominal Pain MDM Narrative Medical decision making narrative: patient is a 19-year-old female presenting to the emergency department for upper abdominal cramping and pain. She did seem to be more tender in the right upper quadrants I will order an ultrasound to look for gallbladder disease. Also her lipase look for pancreatitis. BMP, liver panel, CBC all ordered. Seems unlikely to be gastroenteritis as her description of symptoms does not seem consistent with it. Very unlikely to be a small-bowel obstruction considering no previous abdominal surgeries. Lab work and imaging shows no acute concerning abnormalities. I am not sure exactly was causing symptoms but states she is safe for discharge. Urinalysis was a dirty sample so I do not believe it is a UTI. will culture it to see if there is any bacteria because she is . <Carlitos Solo DO - Last Filed: 11/23/24 21:50> Lab Data Labs: Lab Results 11/23/24 11/23/24 11/23/24 Range/Units 20:15 20:20 21:00 WBC 10.29 (4.50-11.00) K/uL RBC 3.95 L (4.00-5.20) m/uL Hgb 12.2 (12.0-16.0) gm/dL Hct 34.4 (33.0-51.0) % MCV 87 (80-100) fL MCH 31 (26-34) pg MCHC 36 (32-36) gm/dL RDW Coeff of [place] 12.8 (11.5-15.5) % Plt Count 266 (140-440) K/uL Neut % (Auto) 78.6 H (42.0-72.0) % Lymph % (Auto) 13.5 L (20-44) % [place] % (Auto) 6.5 (0.0-11.0) % Eos % (Auto) 1.0 (0.0-7.0) % Baso % (Auto) 0.2 (0.0-3.0) % Neut # (Auto) 8.10 H (1.7-7.0) K/uL Lymph # (Auto) 1.40 (0.90-2.90) K/uL [place] # (Auto) 0.70 (0.00-0.90) K/UL Eos # (Auto) 0.10 (0.00-0.50) K/uL Baso # (Auto) 0.02 (0.00-0.30) K/uL Abs Immat Gran (auto) 0.02 (0.00-0.30) K/uL Imm/Tot Granulo (auto) 0.2 % Sodium 136 (135-149) mmol/L Potassium 3.4 L (3.6-5.1) mmol/L Chloride 103 (96-114) mmol/L Carbon Dioxide 24 (20-32) mmol/L Anion Gap 9 (7-15) mEq/L BUN 8 (5-24) mg/dL Creatinine 0.4 L (0.5-1.5) mg/dL Estimated Creat Clear 199.52 Estimated GFR 145 ml/min Glucose 79 (60-115) mg/dL Calcium 9.6 (8.4-10.6) mg/dL Total Bilirubin 0.3 (0.1-1.5) mg/dL Direct Bilirubin 0.2 (0.0-0.5) mg/dL AST 25 (12-35) U/L ALT 16 (4-35) U/L Alkaline Phosphatase 46 (40-150) U/L Total Protein 7.6 (6.0-8.3) g/dL Albumin 4.6 (3.3-5.0) g/dL Lipase 21 L (23-300) U/L Urine Color Yellow (Yellow) Urine Appearance Slightly Cloudy A (Clear) Urine pH 6.0 (5.0-8.5) Ur Specific [place] >= 1.030 (1.000-1.030) Urine Protein Negative (Negative) Urine Glucose (UA) Negative (Negative) Urine Ketones Negative (Negative) Urine Blood Negative (Negative) Urine Nitrite Negative (Negative) Urine Bilirubin Negative (Negative) Urine Urobilinogen 0.2 (0.2-1.0) Ur Leukocyte Esterase 1+ A (Negative) Urine RBC 0-2 (0-2) Urine WBC 5-10 A (0-5) Ur Squamous Epith Cells Moderate A (None-Few) Urine Bacteria Many A (None) Urine Mucus Moderate A (None) Lab Acknowledgement Test Added <Carlitos Solo, DO - Last Filed: 11/23/24 21:50> Lab Results 11/23/24 11/23/24 11/23/24 Range/Units 20:15 20:20 21:00 WBC 10.29 (4.50-11.00) K/uL RBC 3.95 L (4.00-5.20) m/uL Hgb 12.2 (12.0-16.0) gm/dL Hct 34.4 (33.0-51.0) % MCV 87 (80-100) fL MCH 31 (26-34) pg MCHC 36 (32-36) gm/dL RDW Coeff of [place] 12.8 (11.5-15.5) % Plt Count 266 (140-440) K/uL Neut % (Auto) 78.6 H (42.0-72.0) % Lymph % (Auto) 13.5 L (20-44) % [place] % (Auto) 6.5 (0.0-11.0) % Eos % (Auto) 1.0 (0.0-7.0) % Baso % (Auto) 0.2 (0.0-3.0) % Neut # (Auto) 8.10 H (1.7-7.0) K/uL Lymph # (Auto) 1.40 (0.90-2.90) K/uL [place] # (Auto) 0.70 (0.00-0.90) K/UL Eos # (Auto) 0.10 (0.00-0.50) K/uL Baso # (Auto) 0.02 (0.00-0.30) K/uL Abs Immat Gran (auto) 0.02 (0.00-0.30) K/uL Imm/Tot Granulo (auto) 0.2 % Sodium 136 (135-149) mmol/L Potassium 3.4 L (3.6-5.1) mmol/L Chloride 103 (96-114) mmol/L Carbon Dioxide 24 (20-32) mmol/L Anion Gap 9 (7-15) mEq/L BUN 8 (5-24) mg/dL Creatinine 0.4 L (0.5-1.5) mg/dL Estimated Creat Clear 199.52 Estimated GFR 145 ml/min Glucose 79 (60-115) mg/dL Calcium 9.6 (8.4-10.6) mg/dL Total Bilirubin 0.3 (0.1-1.5) mg/dL Direct Bilirubin 0.2 (0.0-0.5) mg/dL AST 25 (12-35) U/L ALT 16 (4-35) U/L Alkaline Phosphatase 46 (40-150) U/L Total Protein 7.6 (6.0-8.3) g/dL Albumin 4.6 (3.3-5.0) g/dL Lipase 21 L (23-300) U/L Urine Color Yellow (Yellow) Urine Appearance Slightly Cloudy A (Clear) Urine pH 6.0 (5.0-8.5) Ur Specific [place] >= 1.030 (1.000-1.030) Urine Protein Negative (Negative) Urine Glucose (UA) Negative (Negative) Urine Ketones Negative (Negative) Urine Blood Negative (Negative) Urine Nitrite Negative (Negative) Urine Bilirubin Negative (Negative) Urine Urobilinogen 0.2 (0.2-1.0) Ur Leukocyte Esterase 1+ A (Negative) Urine RBC 0-2 (0-2) Urine WBC 5-10 A (0-5) Ur Squamous Epith Cells Moderate A (None-Few) Urine Bacteria Many A (None) Urine Mucus Moderate A (None) Lab Acknowledgement Test Added <Bernabe Keen MD - Last Filed: 11/24/24 15:10> Imaging Data US - abdomen: Attestation: I have reviewed the pertinent imaging results. <Carlitos Solo DO - Last Filed: 11/23/24 21:50> Radiologist's impression: Unremarkable exam. Dictated by Laura Aguilar MD @ 11/23/2024 9:42:41 PM <Carlitos Solo DO - Last Filed: 11/23/24 21:50> Discharge Plan Discharge Clinical Impression: Abdominal pain Qualifiers: Abdominal location: epigastric Qualified Code(s): R10.13 - Epigastric pain <Carlitos Solo DO - Last Filed: 11/23/24 21:50> Patient Disposition: Home, Self-Care <Carlitos Solo DO - Last Filed: 11/23/24 21:50> Condition: Stable <Carlitos Solo DO - Last Filed: 11/23/24 21:50> Instructions: Abdominal Pain (ED) <Carlitos Solo DO - Last Filed: 11/23/24 21:50> Additional Instructions: I cannot say exactly what is causing her abdominal pain that I do not see any acute abnormalities. Follow-up with your primary care provider if symptoms persist. Return to emergency department for new or worsening symptoms <Carlitos Solo DO - Last Filed: 11/23/24 21:50> Activity Level: No Restrictions <Carlitos Solo DO - Last Filed: 11/23/24 21:50> No Restrictions <Bernabe Keen MD - Last Filed: 11/24/24 15:10> Discharge Diet: Regular <Carlitos Solo DO - Last Filed: 11/23/24 21:50> Regular <Bernabe Keen MD - Last Filed: 11/24/24 15:10> Prescriptions: No Action DZR-tjqw-UW-omega 3-fat com #1 27-1-300 mg capsule PO <Carlitos Solo DO - Last Filed: 11/23/24 21:50> Follow Up/Referrals: Provider,Not a Local [Primary Care Provider] - <Carlitos Solo DO - Last Filed: 11/23/24 21:50> Stand Alone Forms: MyHealth Info Instructions <Carlitos Solo DO - Last Filed: 11/23/24 21:50>
--- OUTSIDE RECORDS SUMMARY | 2024-11-23 20:56 | XMS_ITS | Clinical Summary ---
Author Organization [facility] Address [address] [place] [address] Care Team Providers Care Dairy Farmworker Name Role Phone Elsewhere, Pcp Primary Care Provider Unavailabl e Source Comments Patient records contain information from all sites at [facility]. For routine questions regarding patient records, call [phone] during business hours, M-F 8:00 AM - 5:00 PM Central Time. Record requests for emergency care only can be directed to [phone] at any time.[facility] Allergies Active Allergy Reactions Criticality Noted Date Comments Bee Venom Protein (Honey Bee) Swelling 2014 Medications [id number] 27 mg iron- 1 mg tablet Take 1 tablet by mouth daily. Active Active Problems Problem Noted Date Diagnosed Date Depression Major One Episode Full Remission 01/16 Overview (12/08/2016): Depression Major One Episode Full Remission Comments Yes Encounters Date Type Department Care Team Description 10/25/2024 Results Follow-Up [facility] [address] [place] [id number] Jaimie Keen M.S.N., R.N. Microscopic Manual, Vaginitis Panel, Amplified RNA 10/24/2024 5:08 PM CDT - 10/24/2024 5:57 PM CDT Emergency [facility] [address] [place] [address] [place] [phone] Ulisses Garcia P.A.Charlee., P.A. Vaginitis (Primary Dx) Discharge Disposition: Home or Self Care from Last 3 Months Immunizations Immunization Administration Dates Next Due DTaP, [...] Answer Date Recorded Nutrition: EVOO Fat Source 13 05/11 Nutrition: Servings of Fruits/Vegetables per Day Not on file 05/11/2020 Dental Answer Date Recorded Dental: Regular Dentist Unknown 10/02/19 Comments Yes Sex and Gender Information Value Date Recorded Sex Assigned at Not on file Legal Sex Female 6:51 AM PRESSURE WELDER Gender Identity Not on file Sexual Orientation Not on file Last Filed Vital Signs Vital Sign Reading Time Taken Comments Blood Pressure 115/66 10/24/2024 5:13 PM CDT Pulse 67 10/24/2024 5:13 PM CDT Temperature 36.8 C (98.2 F) 10/24/2024 5:13 PM CDT Respiratory Rate 15 10/24/2024 5:13 PM CDT Oxygen Saturation 100% 10/24/2024 5:13 PM CDT Inhaled Oxygen Concentration - - Weight 56 kg (123 lb 7.3 oz) 10/24/2024 5:14 PM CDT Height 162.6 cm (5' 4) 09/13/2017 7:34 PM PRESSURE WELDER Body Mass Index - - Plan of Treatment Health Maintenance Due Date Last Done Comments Chlamydia and Gonorrhea Screening 2004 Depression Monitoring (PHQ-9) 2004 HIV Screening 2004 Hearing Screening during Well Child Visit 2004 Hepatitis C Screening 2004 TB Screening during Well Child Visit 2004 Tobacco Cessation counseling 2004 1 week Well Child Check-Up 2004 1 month Well Child Check-Up 2004 2 month Well Child Check-Up 2004 4 month Well Child Check-Up 2004 9 month Well Child Check-Up 05/02/2005 15 month Well Child Check-Up 10/31/2005 18 month Well Child Check-Up 01/30/2006 2 year Well Child Check-Up 08/02/2006 30 month Well Child Check-Up 01/30/2007 3 year Well Child Check-Up 08/02/2007 Well Child Check-Up Completed in Past Year 08/02/2007 5 year Well Child Check-Up 08/02/2009 6 year Well Child Check-Up 08/02/2010 7 year Well Child Check-Up 08/02/2011 8 year Well Child Check-Up 08/02/2012 10 year Well Child Check-Up 08/02/2014 12 year Well Child Check-Up 08/02/2016 13 year Well Child Check-Up 08/02/2017 14 year Well Child Check-Up 08/02/2018 Vision Screening during Well Child Visit 2018 15 year Well Child Check-Up 08/02/2019 17 year Well Child Check-Up 08/02/2021 18 year Well Child Check-Up 08/02/2022 19 year Well Child Check-Up 08/02/2023 COVID-19 Vaccine ( season) 2024 Influenza Vaccine (#1) 2024 3, 06/26/2016, 07/31/2014, Additional history exists Depression Monitoring (PHQ-9 for quality tracking) 07/19/2024 19 year Well Child Check-Up 08/02/2024 Well Child Check-Up (WCC) 08/02/2024 DTaP,Tdap,and Td Vaccines (7 - Td or Tdap) 02/23/2028 02/22/2018, 04/02/2010, 04/02/2010, Additional history exists RSV vaccine - (32-36 weeks) or 60+ years (1 - 1-dose 75+ series) 2079 Hepatitis B Vaccines Completed 02/27/2005, 02/27/2005, 2004, Additional history exists IPV Vaccines Completed 04/02/2010, 02/16, 02/27/2005, Additional history exists Pneumococcal vaccine (0-49 years) Aged Out 04/02/2010 No longer eligible based on patient's age to complete this topic Varicella Vaccines Completed 04/02/2010, 12/10/2005 HPV Vaccines Completed 04/23/2023, 06/07/2019 Meningococcal Vaccine Completed 04/23/2023, 018 Anemia/Iron Deficiency Screening During Well Child Visit (if High Risk Menstruating Female) Completed 10/02/2023 Procedures Procedure Name Priority Date/Time Associated Diagnosis Comments VAGINITIS PANEL, AMPLIFIED RNA STAT 10/24/2024 5:33 PM CDT HC URINALYSIS AUTO W MICRO STAT 10/24/2024 5:18 PM CDT URINALYSIS WITH MICROSCOPIC IF INDICATED, U STAT 10/24/2024 5:18 PM CDT BACTERIAL CULTURE, AEROBIC + SUSC, URINE STAT 10/24/2024 5:18 PM CDT CBC WITH DIFFERENTIAL, B STAT 10/02/2023 7:14 PM CDT from Last 3 Months or Most Recently Relevant to Health Maintenance Results * (ABNORMAL) Vaginitis Panel, Amplified RNA (10/24/2024 5:33 PM CDT) Bacterial Vaginosis, Amplified RNA Negative Negative 10/25/2024 1:02 PM CDT ECLR Comment: A negative result does not exclude infection. Assay result is based on relative amounts of Lactobacillus (L. gasseri, L. crispatus, L. jensenii), Gardnerella vaginalis and Atopobium vaginae. Violeta species, Amplified RNA Positive(A) Negative 10/25/2024 1:22 PM CDT ECLR Comment: Violeta albicans, C. tropicalis, C. parapsilosis and/or C. dubliniensis RNA detected. Individual organisms are not identified or reported by this assay. Results should be interpreted alongside clinical presentation. Up to 21% of asymptomatic patients may be positive by this assay. Violeta glabrata, Amplified RNA Negative Negative 10/25/2024 1:22 PM CDT ECLR Comment: No RNA detected from Violeta glabrata. A negative result does not exclude infection. Trichomonas vaginalis Amplified RNA Negative Negative 10/25/2024 1:22 PM CDT ECLR Swab (Vagina) 10/24/2024 5:3 3 PM CDT 10/24/2024 8:51 PM CDT us Ulisses Garcia P.A.-C., P.A. LAB MICROBIOLOGY - GENERAL ORDERABLES Final Result [facility] [address] [place] [phone], [facility] ECLR [address] [place] [phone] * (ABNORMAL) Urinalysis with Microscopic if Indicated: Urine, Midstream (10/24/2024 5:18 PM CDT) Source Urine, Urine, Midstream 10/24/2024 5:20 PM CDT CNFL Clarity Clear Clear 10/24/2024 5:22 PM CDT CNFL Color Yellow 10/24/2024 5:22 PM CDT CNFL Comment: ----REFERENCE VALUE---- Colorless Yellow Mayra Blood Negative Negative 10/24/2024 5:22 PM CDT CNFL Nitrite Negative Negative 10/24/2024 5:22 PM CDT CNFL Leukocyte Esterase Negative Negative 10/24/2024 5:22 PM CDT CNFL Protein 100(A) mg/dL 10/24/2024 5:22 PM CDT CNFL Comment: ----REFERENCE VALUE---- Negative Trace Glucose Negative Negative mg/dL 10/24/2024 5:22 PM CDT CNFL Ketones, QI(U) Negative Negative mg/dL 10/24/2024 5:22 PM CDT CNFL Bilirubin Negative Negative 10/24/2024 5:22 PM CDT CNFL pH 7.0 5.0 - 8.0 10/24/2024 5:22 PM CDT CNFL Specific [place] 1.025 1.001 - 1.035 10/24/2024 5:22 PM CDT CNFL Urobilinogen 0.2 0.2 - 1.0 mg/dL 10/24/2024 5:22 PM CDT CNFL Urine (Urine, Midstream) 10/24/2024 5:18 PM CDT 10/24/2024 5:20 PM CDT Ulisses Garcia P.A.-C., P.A. LAB URINE ORDERABL ES Final Result Performing Organization Address [facility] de Phone Number [facility] [address] [place] [address], [facility] [place] [address] * (ABNORMAL) Microscopic Manual (10/24/2024 5:18 PM CDT) White Blood Cells 11-20(A) /hpf 10/24/2024 5:35 PM CDT CNFL Comment: ----REFERENCE VALUE---- Males: 0-3 Females: 0-10 Unknown: 0-10 Red Blood Cells Occ-2 0 - 2 /hpf 10/24/2024 5:35 PM CDT CNFL Mucus Present /hpf 10/24/2024 5:35 PM CDT CNFL Squamous Cells 4-10 /hpf 10/24/2024 5:35 PM CDT CNFL Bacteria Present(A) None Seen 10/24/2024 5:35 PM CDT CNFL Urine 10/24/2024 5:18 PM CDT 10/24/2024 5:20 PM CDT Ulisses Garcia P.A.-C., P.A. LAB URINE ORDERABL ES Final Result [facility] [address] [place] [phone], [facility] CNFL [facility] in [address] [address] * Bacterial Culture, Aerobic + Susceptibility, Urine (10/24/2024 5:18 PM CDT) [facility] Urine Culture Urogenital microbiota, susceptibilities not performed per laboratory criteria. 10/25/2024 4:17 PM CDT ECLR Urine (Urine, Midstream) 10/24/2024 5:18 PM CDT 10/24/2024 8:54 PM CDT Comment:Specimen Source Site : Urine us Ulisses Garcia P.A.-C., P.A. LAB MICROBIOLOGY - GENERAL ORDERABLES Final Result [facility] [address] [place] [address], [facility] ECLR [facility] [place] [address] * (ABNORMAL) CBC with Differential, Blood (10/02/2023 7:14 PM CDT) [facility] Hemoglobin 13.3 11.6 - 15.0 g/dL 10/02/2023 [...] 7:14 PM CDT 10/02/2023 7:18 PM CDT us Janet Moser APRN, C.N.P. LAB BLOOD ADD-O N Final Result [facility] [address] [place] [phone], [facility] CNFL [facility] in [address] [address] from Last 3 Months or Most Recently Relevant to Health Maintenance Care Teams Dairy Farmworker Relationship Specialty Start Date End Date Elsewhere, Pcp PCP - General Physical Anthropologist 09/04/19
--- OUTSIDE RECORDS SUMMARY | 2024-11-23 20:56 | XMS_ITS | Encounter Summary ---
Author Organization [facility] Address [address] [place] [address] Care Team Providers Care Trauma Program Manager Name Role Phone Elsewhere, Pcp Primary Care Provider Unavailabl e Reason for Visit * Reason Comments Urinary Problem 19 year old female a dmits with concerns of a UTI patient state she is 12 weeks Encounter Details Date Type Department Care Team (Late st Contact Info) Description 10/24/2024 5:08 PM CDT - 10/24/2024 5:57 PM CDT Emergency [facility] [address] [place] [address] [place] [phone] Ulisses Garcia, P.A.-C., P.A. [address] [place] [phone] Vaginitis (Primary Dx) Discharge Disposition: Home or Self Care Social History Tobacco Use Types Packs/Day Years Used Date Smoking Tobacco: Never Smokeless Tobacco: Never Alcohol Use Standard Drinks/Week Comments Not Currently 0 (1 standard drink = 0.6 oz pur e alcohol) Nutrition Answer Date Recorded Nutrition: EVOO Fat Source 13 05/11 Nutrition: Servings of Fruits/Vegetables per Day Not on file 05/11/2020 Dental Answer Date Recorded Dental: Regular Dentist Unknown 10/02/19 24 Comments Yes Sex and Gender Information Value Date Recorded Sex Assigned at Not on file Legal Sex Female 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 - 10/24/2024 5:30 PM CDT We should call you with results tomorrow. Try Vagisil if needed. Make sure to stay well hydrated. Come back if needed. * Attachments The following attachments cannot be sent through Care Everywhere. * Irritation of the Vagina (Vaginitis): What to Know (Thai) documented in this encounter Medications at Time of Discharge [id number] A 27 mg iron- 1 mg tablet Take 1 tablet by mouth daily. documented as of this encounter ED Notes * Ulisses Garcia P.A.-C., P.A. - 10/24/2024 5:52 PM CDT SUBJECTIVE CHIEF COMPLAINT/REASON FOR VISIT Urinary Problem (19 year old female admits with concerns of a UTI patient state she is 12 weeks ) HISTORY OF PRESENT ILLNESS Patricia Gallego is a 19-year-old female that presents with dysuria. She states that she hashad pain with urination throughout the day today. She is about 12 weeks . She has some discomfort when she is not urinating. She denies any specific vaginal discharge or odor. No other complaints noted. History provided by: Patient merchandise carrier needed/used: no REVIEW OF SYSTEMS Constitutional: Negative for appetite change, chills, diaphoresis, fatigue and fever. Gastrointestinal: Negative for abdominal pain, nausea and vomiting. Genitourinary: Positive for dysuria. Negative for bladder incontinence, flank pain, frequency, genital sores, hematuria, urgency, vaginal bleeding, vaginal discharge and vaginal pain. Musculoskeletal: Negative for back pain. Skin: Negative for rash. OBJECTIVE Initial Vitals [10/24/24 1713] Temperature 36.8 ??C Pulse Rate 67 Heart Rate Resp Rate 15 Blood Pressure 115/66 SpO2 100 % Pain Score 3 PHYSICAL EXAMINATION Constitutional: Nursing note and vitals reviewed. Vital signs are normal. She is active. She does not appear ill. No distress. HENT: Head: Normocephalic and atraumatic. Eyes: Conjunctivae and lids are normal. Neck: Phonation normal. Cardiovascular: Normal rate. Pulmonary/Chest: Effort normal. No tachypnea. No respiratory distress. Musculoskeletal: Cervical back: No pain with movement. Neurological: Alert and oriented to person, place, and time. Normal speech. Skin: Skin is warm, dry and normal color. No rash noted. Psychiatric: She has a normal mood and affect. Relaxed. ASSESSMENT/PLAN Assessment and Plan Particia Gallego is a 19-year-old female that presents with dysuria. She states that she hashad pain with urination throughout the day today. She is about 12 weeks . She has some discomfort when she is not urinating. She denies any specific vaginal discharge or odor. No other complaints noted. On my exam she appears well and in no significant distress. No exam evidence for pyelonephritis or sepsis. UA did not show any obvious signs of a bladder infection. Urine culture was ordered. She also obtained a wet prep which we will over the results for tomorrow or the next day. I recommended Vagisil if needed. We will call back if the results are positive.. DIFFERENTIAL DIAGNOSES Urinary tract infection - no obvious signs of a bladder infection on UA. Will wait for culture. Pyelonephritis - denies back pain or fever to suggest pyelonephritis Sepsis - normal vital signs and no fever. She appears well overall with no history or exam findingssuggestive of sepsis Yeast infection - she denies any significant discharge. Bacterial vaginosis - she denies any significant discharge or smell. STI - she states that she had a negative STI panel recently.. PROBLEMS ADDRESSED THIS VISIT Dysuria. I reviewed the following external records: primary care records. ED Course as of 10/24/241751e Oct 24, 2024 1723 Urinalysis with Microscopic if Indicated: Urine, Midstream(!): Source Urine, Urine, Midstream Clarity Clear Color, U Yellow Blood Negative Nitrite, U Negative Leukocyte Esterase Negative Protein Urine Random 100(!) Glucose Negative Ketones, QL(U) Negative Bilirubin Negative pH 7.0 Specific [place] 1.025 Urobilinogen 0.2 1725 On initial assessment, the patient appears well and in no significant distress. 1737 Microscopic Manual(!): White Blood Cells 11-20(!) Red Blood Cells Occ-2 Mucus Present Squamous Cells 4-10 Bacteria Present(!) Final Diagnoses: as of 10/24/24 1752 Vaginitis The following tests were considered but ultimately not performed: None. Escalation of care, including admission/observation, considered: None. Ulisses Garcia P.A.-C., P.A. 10/24/24 1756 documented in this encounter Plan of Treatment Not on file documented as of this encounter Procedures Procedure Name Priority Date/Time Associated Diagnosis Comments VAGINITIS PANEL, AMPLIFIED RNA STAT 10/24/2024 5:33 PM CDT URINALYSIS WITH MICROSCOPIC IF INDICATED, U STAT 10/24/2024 5:18 PM CDT HC URINALYSIS AUTO W MICRO STAT 10/24/2024 5:18 PM CDT BACTERIAL CULTURE, AEROBIC + SUSC, URINE STAT 10/24/2024 5:18 PM CDT documented in this encounter Results * (ABNORMAL) Vaginitis Panel, Amplified RNA [...] CDT 10/24/2024 8:51 PM CDT us Ulisses Tapia.Charlee., P.A. LAB MICROBIOLOGY - GENERAL ORDERABLES Final Result Performing Organization Address City/[facility] Co de Phone Number [facility] [address] [place] [phone], [facility] ECLR [address] [place] [phone] * Bacterial Culture, Aerobic + Susceptibility, Urine (10/24/2024 5:18 PM CDT) Urine Culture Urogenital microbiota, susceptibilities not performed per laboratory criteria. 10/25/2024 4:17 PM CDT ECLR Urine (Urine, Midstream) 10/24/2024 5:18 PM CDT 10/24/2024 8:54 PM CDT Comment:Specimen Source Site : Urine us Ulisses Garcia P.A.-C., P.A. LAB MICROBIOLOGY - GENERAL ORDERABLES Final Result Performing Organization Address City/[facility] Co de Phone Number [facility] [address] [place] [phone], [facility] ECLR [facility] in [address] [address] * (ABNORMAL) Microscopic Manual (10/24/2024 5:18 PM [...] ORDERABL ES Final Result Performing Organization Address [facility]/State/ZIP Co de Phone Number [facility] [address] [place] [address], [facility] [place] [address] * (ABNORMAL) Urinalysis with Microscopic if Indicated: [...] 8.0 10/24/2024 5:22 PM CDT CNFL Specific [place] 1.025 1.001 - 1.035 10/24/2024 5:22 PM CDT CNFL Urobilinogen 0.2 0.2 - 1.0 mg/dL 10/24/2024 5:22 PM CDT CNFL Urine (Urine, Midstream) 10/24/2024 5:18 PM CDT 10/24/2024 5:20 PM CDT us Ulisses Garcia P.A.-C., P.A. LAB URINE ORDERABL ES Final Result [facility] [address] [place] [phone], [facility] CNFL [facility] [place] [address] documented in this encounter Visit Diagnoses Diagnosis Vaginitis- Primary documented in this encounter Additional Health Concerns Assessment Noted Time PHQ-9 Depression Total Score: 1 10/26/19 14 11:19 AM CDT documented as of this encounter Care Teams Trauma Program Manager Relationship Specialty Start Date End Date Elsewhere, Pcp PCP - General Undercollar Baster 09/04/19 documented as of this encounter
--- OUTSIDE RECORDS SUMMARY | 2024-11-23 20:56 | XMS_ITS | Encounter Summary ---
Author Organization [facility] Address [address] [place] [address] Care Team Providers Care Patch Finisher Name Role Phone Elsewhere, Pcp Primary Care Provider Unavailabl e Encounter Details Date Type Department Care Team (Late st Contact Info) Description 10/25/2024 Results Follow-Up [facility] [address] [place] [phone] Jaimie Keen M.S.N., R.N. [address] [place] [address] Microscopic Manual, Vaginitis Panel, Amplified RNA Social History Tobacco Use Types Packs/Day Years [...] on file Legal Sex Female 6:51 AM DIRECTOR OF HEALTH EDUCATION Gender Identity Not on file Sexual Orientation Not on file documented as of this encounter Plan of Treatment Not on file documented as of this encounter Visit Diagnoses Not on filedocumented in this encounter Additional Health Concerns Assessment Noted Time PHQ-9 Depression Total Score: 1 10/26/19 14 11:19 AM CDT documented as of this encounter Care Teams Patch Finisher Relationship Specialty Start Date End Date Elsewhere, Pcp PCP - General Order Dispatcher Chief 09/04/19 documented as of this encounter
--- OUTSIDE RECORDS SUMMARY | 2024-11-23 20:56 | XMS_ITS | Clinical Summary ---
Author Organization [facility] Address [address] [place] [id number] Care Team Providers Care Graduate Fellow Name Role Phone Ayala Martinez DO Primary Care Provider Allergies Active Allergy Reactions Criticality Noted Date Comments Bee Venom Protein (Honey Bee) Throat Swelling/Closing High 07/31/2014 Medications No known medications Active Problems No known active problems Encounters Date Type Department Care Team Description 08/28/2024 8:15 AM POLE PEELING MACHINE OPERATOR Orders Only [facility] [address] [place] [address] Lab, [place] [facility] 08/28/2024 Telephone [facility] [address] [place] [address] Carmencita Solorio PA Results 08/28/2024 Travel from Last 3 Months Immunizations Immunization Administration Dates Next Due DTaP-HIB (TriHIBIT) 12/10/2005 OJaM-RezO-OJA (Pediarix) 02/27/2005,2004,0 2004 Dtap-5 Pertussis Antigens 04/02/2010 [...] Sign Reading Time Taken Comments Blood Pressure 104/70 08/25/2024 9:14 AM POLE PEELING MACHINE OPERATOR Pulse 83 08/25/2024 9:14 AM POLE PEELING MACHINE OPERATOR Temperature 37 C (98.6 F) 06/27/2024 5:20 PM POLE PEELING MACHINE OPERATOR Respiratory Rate 16 06/27/2024 5:20 PM POLE PEELING MACHINE OPERATOR Oxygen Saturation 100% 08/25/2024 9:14 AM POLE PEELING MACHINE OPERATOR Inhaled Oxygen Concentration - - Weight 53.1 kg (117 lb) 08/25/2024 9:14 AM POLE PEELING MACHINE OPERATOR Height 167.6 cm (5' 6) 06/27/2024 7:11 PM POLE PEELING MACHINE OPERATOR Body Mass Index - - Plan of Treatment Health Maintenance Due Date Last Done Comments HIV for age 15-65 2019 BMI (ht and wt on same day) for age 18+ 2022 Hepatitis C screening for age 18-79 2022 COVID-19 vaccine series ( season) 2024 Depression screening for age 12+ 04/23/2024 04/23/2023, 06/07/2019, 06/07/2019, Additional history exists Well Child Check for age 3-20 04/23/2024 04/23/2023, 03/03/2018 Influenza Vaccine (Season Ended) 2025 04/23/2023, 06/26/2016, 07/31/2014, Additional history exists Chlamydia for age 16-24 06/27/2025 06/27/2024 Tetanus [...] Procedure Name Priority Date/Time Associated Diagnosis Comments HCG BETA QUANT, STAT 08/28/2024 8:15 AM POLE PEELING MACHINE OPERATOR Positive test (HC) GC CHLAMYDIA TRACH PROBE STAT 06/27/2024 7:06 PM POLE PEELING MACHINE OPERATOR from Last 3 Months or Most Recently Relevant to Health Maintenance Results * STAT hCG Beta Quant, Serum (08/28/2024 8:15 AM POLE PEELING MACHINE OPERATOR) HCG BETA QUANT,PREGNANC Y 367 mIU/mL 08/28/2024 11:33 AM POLE PEELING MACHINE OPERATOR [facility] Blood BLOOD SPECIMEN / Unknown [facility] / Unknown 08/28/2024 8:15 AM POLE PEELING MACHINE OPERATOR 08/28/2024 8:15 AM POLE PEELING MACHINE OPERATOR Narrative [facility] - 08/28/2024 11:33 AM POLE PEELING MACHINE OPERATOR Expected Value for Healthy Non- premenopausal women <5.3mIU/mL FOR GESTATIONAL ASSESSMENT-See Range Table Below Weeks of gestation hCG mIU/mL 3 weeks gestation (5.8 - 71.2) 4 weeks gestation (9.5 - 750) 5 weeks gestation (217 - 7138) 6 weeks gestation (158 - 31,795) 7 weeks gestation (3,697 - 163,563) 8 weeks gestation (32,065 - 149,571) 9 weeks gestation (63,803 - 151,410) 10 weeks gestation (46,509 - 186,977) 12 weeks gestation (27,832 - 210,612) 14 weeks gestation (13,950 - 62,530) 15 weeks gestation (12,039 - 70,971) 16 weeks gestation (9,040 - 56,451) 17 weeks gestation (8,175 - 55,868) 18 weeks gestation (8,099 - 58,176) Biotin supplements may cause clinically significant interference for this test assay. If interference is suspected, it is strongly recommended that biotin is discontinued for at least one week prior to retesting. us Carmencita QUINONEZ CHEMISTRY Final Resu lt [facility] [address] [place] [id number] * GC CHLAMYDIA TRACH PROBE (06/27/2024 7:06 PM POLE PEELING MACHINE OPERATOR) CHLAMYDIA PROBE Negative 7:41 PM POLE PEELING MACHINE OPERATOR [facility] N GONORRHOEAE PROBE Negative 06/28/2024 7:41 PM POLE PEELING MACHINE OPERATOR [facility] Other VAGINAL SWAB / Unknown Non-Blood / Unknown 06/27/2024 7:06 PM POLE PEELING MACHINE OPERATOR 06/27/2024 7:58 PM POLE PEELING MACHINE OPERATOR us Margarita QUINONEZ MICROBIOLOGY Final R esult [facility] [address] [place] [address], from Last 3 Months or Most Recently Relevant to Health Maintenance Insurance MEDICAID Care Teams Graduate Fellow Relationship Specialty Start Date End Date Ayala [place] [address] [place] [address] PCP - General Family Practice 04/23/23
[2024-11-23 21:13] LABS: Lipase* 21 U/L (23-300)
--- NOTE | 2024-11-23 22:20 | ED.NURSE ---
Heart tones measured at 144bpm.
== END 2024-11-23 22:18 | disposition home or self-care (01) ==
PROVIDERS: Emergency Provider Student in an Organized Health Care Education/Training Program
DX: R10.9 Unspecified abdominal pain (principal)
CPT/HCPCS: 36415; 76705; 80048; 80076; 81001; 83690; 85025; 87086; 87186; 99284

== ENCOUNTER 2024-12-21 08:01 | Outpatient (CLI) | payer BC, SELFPAY ==
--- NOTE | 2024-12-21 08:15 | CRLHL7_ITS ---
For Patients: As a result of the Century Cures Act, medical imaging exams and procedure reports are released immediately into your electronic medical record. You may view this report before your referring provider. If you have questions, please contact your health care provider. OB ULTRASOUND GREATER THAN 14 WEEKS, 12/21/2024 CLINICAL HISTORY: anatomic survey. TECHNIQUE: Real time mathis scale imaging of the fetus was performed. Evaluate anatomy. Transabdominal imaging performed. COMPARISON: 09/29/2024. FINDINGS: LMP: 07/27/2024. ASH by LMP: 05/03/2025. GA: 21 weeks 0 days. POSITION: Breech. PLACENTA/CORD: Placenta Position: Anterior. Placenta tip to internal OS: 6.7 cm Umbilical Cord: 3 vessel cord Placental Insertion: Central AMNIOTIC FLUID: 3.4 cm SDP. CERVIX: Visualized. OBSERVED STRUCTURES: Calvarium/Spine: 2.1 cm, 21 weeks 0 days Cisterna Magna 6.3 mm Nuchal Fold 4.1 mm Lateral Ventricle 6.3 mm CSP Midline Falx Choroid Plexus Spine Abdomen: Stomach Abd Cord Insert Urinary Bladder Kidneys Diaphragm Face Nose/Lips Orbital view Profile Limbs: Upper Extremities Lower Extremities Hands Feet Vascular: 4 Ch Heart LVOT RVOT 3VV 3VTV BIOMETRY: BDP: 4.7 cm, 20 weeks 2 days. 21.7% HC: 18.1 cm, 20 weeks 4 days. 21.2% AC: 16.0 cm, 21 weeks 1 day. 46.5% FL: 3.4 cm, 20 weeks 4 days. 25.5% FL/AC: 21.0% HC/AC: 1.1 Heart Rate: 163 bpm Age by this US: 20 weeks 5 days ASH by this US: 05/05/2025 EFW: 377.5 grams. 13 oz. Percentile by ASH: 33.6% IMPRESSION: 1. Concordance of clinical and sonographic dating. 2. Normal anatomic survey. Krishan Nunez M.D. Diagnostic Radiologist [email or web address] Transcribed: 9:00 am DW/Dictated by: Krishan Nunez MD @ 12/25/2024 5:37:00 AM (Electronically Signed)
== END 2024-12-21 08:02 | disposition home or self-care (01) ==
LOC: US 08:02
PROVIDERS: Visit Provider Obstetrics & Gynecology
DX: Z34.92 Encounter for supervision of normal pregnancy, unspecified, second trimester (principal); Z3A.21 21 weeks gestation of pregnancy
CPT/HCPCS: 76805

== ENCOUNTER 2025-02-08 12:27 | Outpatient (CLI) | payer BC, SELFPAY | END 2025-02-08 12:28 | disposition home or self-care (01) | LOC: NFLDREF 02-11 15:29 | PROVIDERS: Visit Provider Obstetrics & Gynecology | DX: Z34.01 Encounter for supervision of normal first pregnancy, first trimester (principal) | CPT/HCPCS: 86592 ==

== ENCOUNTER 2025-03-19 17:42 | Outpatient (CLI) | payer BC, SELFPAY ==
[2025-03-19 17:58] VITALS: PULSE 97; O2SAT 97
[2025-03-19 18:02] VITALS: RESP 16; TEMP 36.9
[2025-03-19 18:06] VITALS: BP 112/63; PULSE 83
[2025-03-19 18:31] LABS: Appearance Urine Clear (Clear)
[2025-03-19 19:52] LABS: Trichomonas No Trichomonas Seen (None Seen)
[2025-03-19 20:14] LABS: Fetal Fibronectin* Negative (Negative)
--- NOTE | 2025-03-19 22:42 | PC.OBNST ---
NST Note NST Note Start: 03/19/25 17:50 Freq: ONCE Status: Discharge Protocol: Document 03/19/25 22:39 GUTIERREZ (Rec: 03/19/25 22:41 GUTIERREZ Macktzahra) NST Note 1 Para (# of births) 0 EDC 05/03/25 Gestational Age In 33 Weeks & 4 Days Weeks & Days Patient Presented Contractions/cramping with Complaint(s) of Reactive Yes Appropriate for Yes Gestational Age SURYA Melchor RN Date 03/19/25 Reactive Yes Appropriate for Yes Gestational Age SURYA Lopez RN Date 03/19/25 OB NST charge Yes Complete NST Note Yes via Write Note The provider's electronic signature indicates the NST is reactive/appropriate for gestational age. *Note to provider: If an addendum is required, open the patient's chart and click on the note under the Nurse/Allied Health tab.
== END 2025-03-19 20:31 | disposition home or self-care (01) ==
LOC: OB OUT 17:43 → OB 17:43
PROVIDERS: Visit Provider Obstetrics & Gynecology
DX: O47.03 False labor before 37 completed weeks of gestation, third trimester (principal); Z3A.33 33 weeks gestation of pregnancy
CPT/HCPCS: 59025; 81001; 81003; 84112; 87086; 87210; G0463

== ENCOUNTER 2025-03-22 10:30 | Outpatient (CLI) | payer BC, SELFPAY | END 2025-03-22 10:31 | disposition home or self-care (01) | LOC: NFLDREF 03-28 08:24 | PROVIDERS: Visit Provider Obstetrics & Gynecology | DX: Z34.93 Encounter for supervision of normal pregnancy, unspecified, third trimester | CPT/HCPCS: 82728 ==

== ENCOUNTER 2025-04-05 09:35 | Outpatient (CLI) | payer BC, SELFPAY | END 2025-04-05 09:36 | disposition home or self-care (01) | LOC: NFLDREF 04-11 07:19 | PROVIDERS: Visit Provider Obstetrics & Gynecology | DX: Z34.93 Encounter for supervision of normal pregnancy, unspecified, third trimester (principal) | CPT/HCPCS: 87081; 87653 ==

== ENCOUNTER 2025-04-10 18:59 | Outpatient (CLI) | payer BC, SELFPAY ==
[2025-04-10 19:10] VITALS: BP 122/64; PULSE 87; PULSE 96; TEMP 36.8; O2SAT 99
[2025-04-10 19:15] VITALS: PULSE 98; O2SAT 98
[2025-04-10 19:20] VITALS: PULSE 92; TEMP 36.6; O2SAT 99
[2025-04-10 20:26] LABS: Appearance Urine Clear (Clear)
--- NOTE | 2025-04-10 22:31 | PC.OBNST ---
NST Note NST Note Start: 04/10/25 19:15 Freq: ONCE Status: Discharge Protocol: Document 04/10/25 22:19 CJM (Rec: 04/10/25 22:29 CJM No Response) NST Note 1 Para (# of births) 0 EDC 05/03/25 Gestational Age In 36 Weeks & 5 Days Weeks & Days Patient Presented Contractions/cramping with Complaint(s) of Reactive Yes Appropriate for Yes Gestational Age RN Ricky Garcia RN Date 04/10/25 Reactive Yes Appropriate for Yes Gestational Age SURYA Cline RN Date 04/10/25 OB NST charge Yes Complete NST Note Yes via Write Note The provider's electronic signature indicates the NST is reactive/appropriate for gestational age. *Note to provider: If an addendum is required, open the patient's chart and click on the note under the Nurse/Allied Health tab.
== END 2025-04-10 22:19 | disposition home or self-care (01) ==
LOC: OB OUT 19:00 → OB 19:01
PROVIDERS: Absent Provider Obstetrics & Gynecology; Visit Provider Obstetrics & Gynecology
DX: O47.03 False labor before 37 completed weeks of gestation, third trimester (principal); Z3A.36 36 weeks gestation of pregnancy
CPT/HCPCS: 59025; 81001; 81003; 87086; G0463; A9270

== ENCOUNTER 2025-04-12 11:00 | Outpatient (CLI) | payer BC, SELFPAY ==
--- NOTE | 2025-04-12 11:15 | CRLHL7_ITS ---
For Patients: As a result of the Century Cures Act, medical imaging exams and procedure reports are released immediately into your electronic medical record. You may view this report before your referring provider. If you have questions, please contact your health care provider. OB ULTRASOUND FOLLOW-UP, 04/12/2025 CLINICAL HISTORY: Fundal height measuring small. TECHNIQUE: Real time mathis scale imaging of the fetus was performed. Transabdominal imaging performed. COMPARISON: 12/21/2024, 09/29/2024. FINDINGS: ASH by LMP: 05/03/2025. GA: 37 weeks 0 days. Gestation: Single. Cervix: Not visualized. Positioning: Vertex. Amniotic Fluid: 5.5 cm SDP. Placenta: Technique: TA. Placenta Position: Anterior. Dopplers: Heart Rate: 139 bpm. BIOMETRY BPD: 8.7 cm, 35 weeks 0 days. 14.3% HC: 32.2 cm, 36 weeks 2 days. 12.5% AC: 32.3 cm, 36 weeks 2 days. 41.2% FL: 7.2 cm, 36 weeks 5 days. 41.5% FL/AC Ratio: 22.19% HC/AC Ratio: 1.00. EFW: 2884 grams, 6 lb 6 oz. Age by this US: 36 weeks 1 day. ASH by this US: 05/09/2025. Percentile by ASH: 35.3% IMPRESSION: 1. Sonographic gestational age 36 weeks 1 day and sonographic due date 05/09/2025. Sonographic age is 6 days behind clinical age. 2. Estimated weight 35th percentile. Abdominal circumference 41st percentile. Krishan Nunez M.D. Diagnostic Radiologist [email or web address] Transcribed: 2:44 pm DW/Dictated by: Krishan Nunez MD @ 04/12/2025 1:13:00 PM (Electronically Signed)
== END 2025-04-12 11:01 | disposition home or self-care (01) ==
LOC: US 11:00
PROVIDERS: Visit Provider Obstetrics & Gynecology
DX: O36.5930 Maternal care for other known or suspected poor fetal growth, third trimester, not applicable or unspecified (principal); Z3A.36 36 weeks gestation of pregnancy
CPT/HCPCS: 76816

== ENCOUNTER 2025-04-25 15:51 | Inpatient (IN) | payer BC, SELFPAY ==
[2025-04-25 16:00] VITALS: PULSE 89; O2SAT 98
[2025-04-25 16:03] VITALS: BP 124/68; PULSE 85
--- NOTE | 2025-04-25 16:07 | W.PM.LDBA ---
Subjective History of Present Illness Narrative: Patient is being admitted to Labor and Delivery for elective induction. She is a 19 year old at 39 weeks gestation. Her full history and physical was dictated by myself on 04/12/25. Please see this for details. Cervical exam was performed last week by Dr. Humphreys, ripening with misoprostol recommended. Patient is feeling well today. She notes intermittent contractions that are painful, maybe a few times per hour. No vaginal bleeding or leaking of fluid. Endorses active movement. She is in her normal state of health, no concerns. Specific Issues/Plans Partner: Rashad Mother: Vira Baby: Girl. Antonette H&P: Tramaine on 04/12 [place]: Low risk female # Vaping Trying to quit, declined declined nicotine replacement or Wellbutrin # Anemia - 10.5 to 10.3 at 34 weeks despite PO iron to complete 5 doses of IV iron 04/20 # varicella nonimmune Vaccinate # rubella nonimmune MMR Imaging: - 12/21 FAS: Normal anatomy. EFW 33rd percentile, AC 46 percentile. Anterior placenta, no previa. SDP 3.4 cm. Cervix 3.7 cm and closed. - 04/12: EFW 2884g at 35%ile - BPD 14%, HC 12.5%, AC 41%, FL 41.5%. MVP 5.5cm. FHR 139bpm. Vertex. Vaccinations: COVID: Discussed and declined Flu: Discussed and declined Tdap: 02/22/25 RSV: declined 04/05/2025 32 week mental health: PHQ-9: 1. SHANA-7: 1 OB - Problem Based A/P Additional Plan (1) Tobacco use affecting in third trimester, antepartum: Problem details: Quit as of 33 weeks Status: Acute (2) : Status: Acute (3) Anemia affecting : Status: Acute Plan Patricia is a 19yo at 39w0d GA admitted for elective IOL. is complicated by tobacco use disorder (vaping, quit at about 33 weeks!), anemia (status post IV iron), history of depression. - Cervix is 1/70/-2 on admission. Plan cervical ripening with cytotec overnight. Will revise to low dose pitocin once favorable. - Plan type and screen on admission with CBC given anemia - Pain control per patient preference, she is a candidate for morphine/Vistaril for therapeutic rest overnight - EFW by ultrasound on 04/12 was 2884g at 35%ile, AC 41% - Blood type O positive - GBS negative - Care to be assumed by Dr. Lemus on 04/26 at 0700 OB Exam Physical Exam Vital signs: Pulse BP Pulse Ox 85 124/68 98 04/25/25 16:03 04/25/25 16:03 04/25/25 16:00 Narrative: General: Alert and oriented, no acute distress Psych: Appropriate mood and affect Abdomen: Gravid. EFW by ultrasound on 04/12 was 2884g at 35%ile, AC 41%ile. Vertex. Cervix: 1/70/-2, vertex palpable. FHR: Reactive NST. Baseline 130bpm, moderate variability, several qualifying 15x15 accelerations present, no decelerations [place]: Irritability noted, infrequent contractions
[2025-04-25 16:08] VITALS: BMI 25.7
[2025-04-25 17:25] LABS: Hematocrit* 34.9 % (33.0-51.0); Hemoglobin* 11.7 gm/dL (12.0-16.0); Immature Granulocytes Abs Auto 0.03 K/uL (0.00-0.30); Immature Granulocytes Pct Auto 0.3 %; Mean Corpuscular HGB Conc 34 gm/dL (32-36); Mean Corpuscular Hemoglobin 30 pg (26-34); Mean Corpuscular Volume 88 fL (80-100); RDW Coefficient of Variation % 14.4 % (11.5-15.5); Red Blood Count* 3.96 m/uL (4.00-5.20); White Blood Count* 9.23 K/uL (4.50-11.00)
[2025-04-25 17:32] LABS: Lymphocytes Absolute Auto 1.20 K/uL (0.90-2.90)
[2025-04-25 17:33] LABS: Slide Review Reflex No
[2025-04-25 19:58] VITALS: BP 122/72; PULSE 66; TEMP 36.8
[2025-04-26] VITALS (66 sets, daily range): BP systolic 101–146; BP diastolic 55–84; PULSE 68–107; RESP 16–20; TEMP 36.5–36.9; O2SAT 92–100
--- NOTE | 2025-04-26 07:46 | PM.OBPNL ---
Subjective Time Seen by Provider: 07:46 Date Seen: 04/26/25 Objective Vital Signs: Last Vital Signs Temp 98.5 F 04/26/25 06:51 Pulse 73 04/26/25 06:51 BP 118/79 04/26/25 06:51 Pulse Ox 98 04/25/25 16:00 Pelvic Exam Dilation (cm): 2.5 Effacement (%): 75 Station: -1 Comments: Patient feeling contractions but comfortable. Contractions have spaced out since last dose of cytotec was 0243. Will plan on switching to pitocin per protocol. Plan for AROM in 2 hours. Patient has no additional questions. Ok to get epidural whenever she desires NST: Cat I
[2025-04-26] MEDS: OXYTOCIN 30 unit/500 ML in NS 30 UNIT/500 ML BAG IVPB (07:53)
[2025-04-26] MEDS: LACTATED RINGERS 1000 ML 1,000 ML 123 ML IV (07:53)
--- NOTE | 2025-04-26 10:01 | PM.OBPNL ---
Subjective Time Seen by Provider: 10:00 Date Seen: 04/26/25 Objective Vital Signs: Last Vital Signs Temp 98.2 F 04/26/25 07:55 Pulse 80 04/26/25 09:49 Resp 20 04/26/25 09:49 BP 126/79 04/26/25 09:49 Pulse Ox 98 04/25/25 16:00 Pelvic Exam Dilation (cm): 3 Effacement (%): 75 Station: -1 Comments: AROM with patient's consent. Clear fluid. No complications Contractions Contraction Frequency: [id number] Contraction pattern: Irregular Contraction intensity: Moderate Pitocin Rate (mU/min): 6 Assessment Assessment: induction ongoing Station: -1 Amniotic Membrane Status: AROM (955) Status: Category l Heart Rate Baseline: 140 Skilled Nursing Variability: Moderate (6-25) Monitor Accelerations: Present Monitor Decelerations: None Tracing Comments: Cat I Maternal Status: Coping well. Still comfortable
[2025-04-26] MEDS: LIDOCAINE 2% (PF) 5 ML VIAL EPIDURAL (11:45)
[2025-04-26] MEDS: ROPIVACAINE 0.2% 100 ml 100 ML 12 MG EPIDURAL (11:50)
--- NOTE | 2025-04-26 11:56 | PM.ANBPRC ---
[facility] Medical History Depression ?F32.A - Depression, unspecified (ICD-10) Social History Narrative: Occupation: Nurse's aide. Marital status: Single. Jehovah'S Witness/cultural needs: no. Chemical or radiation exposure: no. Pre- tobacco use: Vaping Pre- alcohol use: no. Current tobacco use: Yes, vaping Current alcohol use: no. Recreational drug use: no. Dietary restrictions: no. Blood transfusion acceptable in an emergency: yes. PSYCHOSOCIAL HISTORY: History of depression or currently depressed: Denies. Current or past physical, emotional, or sexual mistreatment: Denies. Problems that will make it hard to make it to appointments: Denies. What is your current living situation?: I presently have a place to live Problems where you live: no known problems In the past 12 months, utilities in danger of being shut off: no In past 12 months, lack of transportation kept you from medical appts, meetings, work, or getting things needed for daily living: no In the past 12 mos, have been you worried that your food would run out before you had money to buy more?: never true In the past 12 mos, the food you bought just didn't last and you didn't have money to buy more?: never true Smoking Status: Former smoker Do you use any of these nicotine containing products: Vaping Products Second hand tobacco smoke exposure: No How often do you have a drink containing alcohol: never How often do you have six or more drinks on one occasion: Never AUDIT-C Alcohol total score: 0 Non-prescribed substance use: denies use How often does anyone, including family, friends and others, physically hurt you: never How often does anyone, including family, friends and others, insult or talk down to you: never How often does anyone, including family, friends and others, threaten you with harm: never How often does anyone, including family, friends and others, scream or curse at you: never service: No Meds Home Medications and Allergies Home Medications ?Medication ?Instructions ?Recorded ?Confirmed ?Type EMW-xupx-CO-omega 3 fatty no.1 27 1 cap PO DAILY 09/29/24 04/19/25 History mg-1 mg-300 mg capsule Allergies Allergy/AdvReac Type Severity Reaction Status Date / Time No Known Drug Allergies Allergy Verified 04/19/25 08:16 Results Labs Labs: Laboratory Results - last 24 hr 04/25/25 17:05 WBC 9.23 RBC 3.96 L Hgb 11.7 L Hct 34.9 MCV 88 MCH 30 MCHC 34 RDW Coeff of Marcos 14.4 Plt Count 216 Neut % (Auto) 76.7 H Lymph % (Auto) 12.8 L [place] % (Auto) 8.3 Eos % (Auto) 1.6 Baso % (Auto) 0.3 Neut # (Auto) 7.10 H Lymph # (Auto) 1.20 [place] # (Auto) 0.80 Eos # (Auto) 0.15 Baso # (Auto) 0.03 Abs Immat Gran (auto) 0.03 Imm/Tot Granulo (auto) 0.3 Blood Type O Positive Antibody Screen NEGATIVE Vital Signs Vital Signs: Last Vital Signs Temp 98.1 F 04/26/25 10:49 Pulse 74 04/26/25 11:55 Resp 20 04/26/25 10:49 BP 130/69 04/26/25 11:55 Pulse Ox 100 04/26/25 11:52 Weight: 76.657 kg Height: 172.72 cm Anesthesia Procedures Epidural Insertion Patient Location: OB Start Time: 11:00 Stop Time: 12:00 Start Date: 04/26/25 Stop Date: 04/26/25 Reason for Block: procedure for pain Patient Position: sitting Performed By: Marychuy Fu Preanesthetic Checklist: IV checked, risks and benefits discussed, monitors and equipment checked, pre-op evaluation, timeout performed and anesthesia consent Prep: chlorhexidine gluconate Monitoring: blood pressure monitoring, continuous pulse oximetry and heart rate Approach: midline Vertebral Space: lumbar (1-5) Epidural Technique: OCTAVIO saline Needle Type: Tuohy needle Injection Technique: continuous catheter Needle gauge: 17 Needle Length (cm): 10 cm Needle Insertion Depth (cm): 5 Catheter Gauge: 19 Catheter Type: multi-orifice Catheter at skin depth (cm): 11 Test Dose Result: negative and lidocaine 1.5% with epinephrine 1 to 200,000
[2025-04-26] MEDS: LACTATED RINGERS 1000 ML 1,000 ML 125 ML IV (12:24)
[2025-04-26] MEDS: miSOPROStoL 800 MCG/4 TABLET PR (15:44)
--- NOTE | 2025-04-26 17:17 | W.PM.VAGDEL1 ---
Procedure Delivery date: 04/26/25 Procedure Done: Global Events: Labor Induction Intrapartal Events: None Delivery monitor: external FHT Route of delivery: Episiotomy description: None Laceration description: Perineal - 2nd Degree Delivery repair: Vicryl Estimated blood loss (mL): 350 Anesthesia type: Epidural Disposition: floor Narrative: The patient is a 19 year-old G 1 P 0 admitted on 04/25/2025 at 38 and 6/7 weeks gestation for elective induction of labor. GBS negative Labor Analgesia: Epidural Pitocin: For augmentation as well as active 3rd stage management AROM: 04/26/25 at 0956, with clear fluid Labor onset: 04/26/25 at 1243 Complete: 04/26/25 at 1503 Pushin04/26/25 at 1519 heart tones during second stage were cat I with early decelerations. At 1527 a viable female delivered in vertex OA presentation over intact via spontaneous vaginal delivery. The 's body was delivered in the usual manner without difficulty. The infant was placed on maternal abdomen. The cord was clamped and cut after a 30-60 second delay. The nose and mouth were bulb suctioned. weight: 3220g. 8 at 1 minute and 9 at 5 minutes. Shoulder dystocia: No. Nuchal cord: No Placenta delivered spontaneously and complete at 1531 with a 3-vessel cord. Placenta examined and noted to be complete. Placenta was not sent to pathology. The cervix and vagina were inspected for lacerations. Laceration(s): 2nd degree perineal, repaired with 2-0 vicryl Complications: None Estimated blood loss: 350 cc. 800 mcg of misoprostol placed HI due to intermittent lower uterine segment atony Cord gases: Not indicated Sponge and needles counts are correct. Mother and were stable at the time of this note.
[2025-04-26] MEDS: IBUPROFEN 600 MG TABLET PO (18:00)
[2025-04-27 00:33] VITALS: BP 109/71; PULSE 72; RESP 16; O2SAT 98
[2025-04-27] MEDS: ACETAMINOPHEN 500 MG TABLET 1000 MG PO (00:38)
[2025-04-27 03:15] VITALS: BP 106/71; PULSE 83; RESP 16; TEMP 36.6; O2SAT 98
[2025-04-27 05:50] LABS: Hemoglobin* 11.5 gm/dL (12.0-16.0)
--- NOTE | 2025-04-27 08:30 | P.DS_ITS ---
DS: Providers Provider Date Seen: 04/27/25 Date of admission: 04/25/25 15:51 Primary care physician: Not a Local Provider Admitting Clinician: Angelina Redd MD Attending Physician on discharge: Frederic Dawn CNM Date of Discharge: 04/27/25 DS: Diagnosis Discharge Diagnosis (1) care and examination of lactating mother: Status: Acute Exam Narrative: Exam Narrative: VSS, afebrile GENERAL APPEARANCE: ?normal affect, alert, no distress MOOD: ?appropriate HEENT: normocephalic, neck supple, full ROM CHEST: ?Symmetrical chest wall movement. ?Normal respiratory effort. ?Clear to auscultation HEART: ?regular rate and rhythm ABDOMEN: ?soft, non-tender. Uterine fundus is firm, at Umbilicus, Midline and is appropriate for the stage of recovery. ?Bowel sounds present. PERINEUM: ?mild edema of the perineum, there is a 2nd degree laceration that is healing well. EXTREMITIES: ?normal and no edema Const: Vital Signs, click to edit/add: Vital Signs - 24 hr 04/26/25 08:56 04/26/25 08:56 04/26/25 09:49 Temperature Pulse Rate 80 80 Pulse Rate [Pulse Oximeter] Respiratory Rate 20 Blood Pressure 122/75 126/79 Blood Pressure [Ri ght Arm] Pulse Oximetry Oxygen Delivery Me thod 04/26/25 09:49 04/26/25 09:56 04/26/25 10:49 Temperature 98.3 F Pulse Rate 73 Pulse Rate [Pulse Oximeter] Respiratory Rate 20 Blood Pressure 119/62 Blood Pressure [Ri ght Arm] Pulse Oximetry Oxygen Delivery Me thod 04/26/25 10:49 04/26/25 11:12 04/26/25 11:17 Temperature 98.1 F Pulse Rate Pulse Rate [Pulse Oximeter] Respiratory Rate 20 Blood Pressure Blood Pressure [Ri ght Arm] Pulse Oximetry 97 97 Oxygen Delivery Me thod 04/26/25 11:22 04/26/25 11:27 04/26/25 11:31 Temperature Pulse Rate Pulse Rate [Pulse Oximeter] Respiratory Rate Blood Pressure Blood Pressure [Ri ght Arm] Pulse Oximetry 98 98 92 Oxygen Delivery Me thod 04/26/25 11:32 04/26/25 11:37 04/26/25 11:41 Temperature Pulse Rate 75 Pulse Rate [Pulse Oximeter] Respiratory Rate Blood Pressure 120/71 Blood Pressure [Ri ght Arm] Pulse Oximetry 100 100 Oxygen Delivery Me thod 04/26/25 11:42 04/26/25 11:43 04/26/25 11:45 Temperature Pulse Rate 97 83 Pulse Rate [Pulse Oximeter] Respiratory Rate Blood Pressure 119/69 124/72 Blood Pressure [Ri ght Arm] Pulse Oximetry 100 Oxygen Delivery Mi thod 04/26/25 11:47 04/26/25 11:49 04/26/25 11:51 Temperature Pulse Rate 76 71 68 Pulse Rate [Pulse Oximeter] Respiratory Rate Blood Pressure 128/73 127/69 129/61 Blood Pressure [Ri ght Arm] [facility]ulse [facility]etry [facility] 11:52 04/26/25 11:53 04/26/25 11:55 Temperature Pulse Rate 76 74 Pulse Rate [Pulse Oximeter] Respiratory Rate Blood Pressure 129/64 130/69 Blood Pressure [Ri ght Arm] Pulse Oximetry [facility] 04/26/25 11:57 04/26/25 11:58 04/26/25 12:00 Temperature 97.7 F Pulse Rate 83 Pulse Rate [Pulse Oximeter] Respiratory Rate 16 Blood Pressure 131/64 Blood Pressure [Ri ght Arm] Pulse Oximetry 98 [facility] 04/26/25 12:03 04/26/25 12:04 04/26/25 12:08 Temperature Pulse Rate 71 Pulse Rate [Pulse Oximeter] Respiratory Rate Blood Pressure 129/70 Blood Pressure [Ri ght Arm] Pulse Oximetry 98 99 [facility] 04/26/25 12:10 04/26/25 12:13 04/26/25 12:18 Temperature Pulse Rate 80 71 Pulse Rate [Pulse Oximeter] Respiratory Rate Blood Pressure 125/79 119/74 Blood Pressure [Ri ght Arm] Pulse Oximetry 100 99 Oxygen Delivery Mi thod 04/26/25 12:19 04/26/25 12:23 04/26/25 12:24 Temperature Pulse Rate 80 75 Pulse Rate [Pulse Oximeter] Respiratory Rate Blood Pressure 127/76 122/71 Blood Pressure [Ri ght Arm] Pulse Oximetry 100 Oxygen Delivery Mi thod 04/26/25 12:28 04/26/25 12:33 04/26/25 12:34 Temperature Pulse Rate 86 71 Pulse Rate [Pulse Oximeter] Respiratory Rate Blood Pressure 119/69 131/74 Blood Pressure [Ri ght Arm] Pulse Oximetry 100 100 Oxygen Delivery Mi thod 04/26/25 12:51 04/26/25 13:06 04/26/25 13:21 Temperature Pulse Rate 75 92 78 Pulse Rate [Pulse Oximeter] Respiratory Rate Blood Pressure 121/75 120/75 117/65 Blood Pressure [Ri ght Arm] Pulse Oximetry [facility] 04/26/25 13:37 04/26/25 13:51 04/26/25 14:06 Temperature Pulse Rate 83 107 H 77 Pulse Rate [Pulse Oximeter] Respiratory Rate Blood Pressure 122/64 117/68 121/64 Blood Pressure [Ri ght Arm] Pulse Oximetry [facility] 04/26/25 14:08 04/26/25 14:08 04/26/25 14:22 Temperature 98.3 F Pulse Rate 96 85 Pulse Rate [Pulse Oximeter] Respiratory Rate 16 Blood Pressure 119/55 L 101/62 Blood Pressure [Ri ght Arm] Pulse Oximetry [facility] 04/26/25 14:36 04/26/25 14:52 04/26/25 15:07 Temperature Pulse Rate 82 86 86 Pulse Rate [Pulse Oximeter] Respiratory Rate Blood Pressure 110/69 114/55 L 123/67 Blood Pressure [Ri ght Arm] Pulse Oximetry [facility] 04/26/25 15:33 04/26/25 15:33 04/26/25 15:38 Temperature 98.3 F Pulse Rate 81 Pulse Rate [Pulse Oximeter] Respiratory Rate 16 Blood Pressure 127/60 Blood Pressure [Ri ght Arm] Pulse Oximetry 98 99 [facility] 04/26/25 15:43 04/26/25 15:48 04/26/25 15:48 Temperature Pulse Rate 87 Pulse Rate [Pulse Oximeter] Respiratory Rate 20 Blood Pressure 128/69 Blood Pressure [Ri ght Arm] Pulse Oximetry 99 99 [facility] 04/26/25 15:53 04/26/25 15:58 04/26/25 16:03 Temperature Pulse Rate 88 Pulse Rate [Pulse Oximeter] Respiratory Rate Blood Pressure 135/78 Blood Pressure [Ri ght Arm] Pulse Oximetry 100 [facility] 04/26/25 16:03 04/26/25 16:18 04/26/25 16:18 Temperature Pulse Rate 83 Pulse Rate [Pulse Oximeter] Respiratory Rate 16 16 Blood Pressure 127/81 Blood Pressure [Ri ght Arm] Pulse Oximetry Oxygen Delivery Me thod 04/26/25 16:33 04/26/25 16:33 04/26/25 16:48 Temperature Pulse Rate 89 86 Pulse Rate [Pulse Oximeter] Respiratory Rate 16 Blood Pressure 142/71 H 146/70 H Blood Pressure [Ri ght Arm] Pulse Oximetry Oxygen Delivery Me thod 04/26/25 16:48 04/26/25 16:49 04/26/25 17:03 Temperature Pulse Rate 75 82 Pulse Rate [Pulse Oximeter] Respiratory Rate 16 Blood Pressure 136/64 135/69 Blood Pressure [Ri ght Arm] Pulse Oximetry Oxygen Delivery Me thod 04/26/25 17:03 04/26/25 17:18 04/26/25 17:18 Temperature 97.9 F Pulse Rate 90 Pulse Rate [Pulse Oximeter] Respiratory Rate 16 16 Blood Pressure 142/74 H Blood Pressure [Ri ght Arm] Pulse Oximetry Oxygen Delivery Mi thod 04/26/25 17:21 04/26/25 20:03 04/27/25 00:33 Temperature 97.9 F Pulse Rate Pulse Rate [Pulse Oximeter] 80 72 Respiratory Rate 16 16 Blood Pressure Blood Pressure [Ri ght Arm] 121/84 109/71 Pulse Oximetry 100 98 98 Oxygen Delivery Me thod Room Air Room Air 04/27/25 03:15 Temperature 98 F Pulse Rate Pulse Rate [Pulse Oximeter] 83 Respiratory Rate 16 Blood Pressure Blood Pressure [Ri ght Arm] 106/71 Pulse Oximetry 98 Oxygen Delivery Me thod Room Air Documenting provider has reviewed patient's vital signs: yes OB - DS: Summary Hospital Course Hospital Course: Patricia is a 19 y.o. who was admitted to L & D for an elective induction of labor . ?She had an uncomplicated NVD.?The patient feels well. ?The pain is well controlled with current medications. ?She has no new complaints. 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 the patient has done well.? Vitals have been stable, she had three mild range elevated BP's immediately postdelivery and no elevation since. We reviewed s/s of preeclampsia in the period today. ? She has remained afebrile.? Has a good appetite, is tolerating a general diet. ?She is voiding without difficulty.? She is passing gas and has not yet had a bowel movement.? She is ambulating and denies any dizziness.? Has Small amount of rubra lochia. ?She is planning nothing for prevention, reports she is not currently in a relationship. She is requesting a 24 hour discharge today her mother was present in her room and is supportive. Peripartum Data delivery method: Vaginal Laceration description: Perineal - 2nd Degree complications: none [place] Gender: Female Infant Discharge Plan: Home Status at Discharge Functional status at discharge: independent ambulation Overall status at discharge: patient is progressing back to baseline Time Spent with Patient Time attestation: Total time spent providing and/or coordinating discharge services: Time spent: Less than 30 minutes Discharge Plan Discharge Disposition: Home, Self-Care Date of Admission: 04/25/25 15:51 Attending Provider on Discharge: Frederic Dawn Consulting Providers: Yolanda Lemus Primary Care Provider: Provider,Not a Local Condition: Stable Anticipated Discharge Date/Time: 04/27/25 16:30 Discharge Medications: New acetaminophen 500 mg Tablet 1,000 mg PO Q6H PRN (Reason: pain/fever) Qty: 0 0RF docusate sodium 100 mg Capsule 100 mg PO DAILY Qty: 90 0RF ibuprofen 600 mg Tablet 600 mg PO Q6H PRNQty: 60 0RF Continued LAL-trua-SO-omega 3 fatty no.1 27-1-300 mg capsule 1 cap PO DAILY Discharge Orders: Discharge Order (Routine); Ordered 04/27/25 Ordered By: Frederic Dawn Patient Education: OB Over the Counter Medication Information, OB Vaginal/Breast Feeding Additional Instructions: Discharge instructions were reviewed with the patient including signs and symptoms of infection and home going medications Nothing vaginally for 6 weeks: no tampons or intercourse Off Work or School for 6 weeks 2-week visit: discuss feeding concerns, review control options and screen for anxiety/depression. 6-week visit for an annual exam. consultation services are available to all mothers and babies for the first year after delivery.? To make an appointment, please call [phone]. Activity Level: Activity as Tolerated Discharge Diet: Regular Follow Up Appointments: [facility] [Provider Group] Forms: Patient Belongings, MyHealth Info Instructions
[2025-04-27] MEDS: DOCUSATE SODIUM 100 MG CAPSULE PO (09:16)
[2025-04-27 09:17] VITALS: BP 111/71; PULSE 68; RESP 16; TEMP 36.8; O2SAT 99
[2025-04-27] MEDS: IBUPROFEN 600 MG TABLET PO (09:24)
[2025-04-27] MEDS: MEASLES,MUMPS,RUBELLA VACC/PF 1 DOSE INJ 1 EACH SUBCUT (10:39)
[2025-04-27 11:58] VITALS: BP 127/82; PULSE 82; RESP 16; TEMP 36.6; O2SAT 98
--- NOTE | 2025-04-27 12:40 | PM.ANPOST ---
Post Anesthesia Note Post Anesthesia Note Patient seen: Inpatient Respiratory Status: adequate Cardiovascular Status: adequate Mental Status: baseline Pain: adequate Temp: baseline Anesthetic awareness: N/A Complications: none Follow care: none
== END 2025-04-27 18:30 | disposition home or self-care (01) | DRG 560 ==
PROVIDERS: Obstetrics & Gynecology; Admitting Provider Obstetrics & Gynecology; Visit Provider Obstetrics & Gynecology
DX: O99.02 Anemia complicating childbirth (principal); D64.9 Anemia, unspecified; O99.334 Smoking (tobacco) complicating childbirth; F17.290 Nicotine dependence, other tobacco product, uncomplicated; O70.1 Second degree perineal laceration during delivery; O62.2 Other uterine inertia; Z3A.39 39 weeks gestation of pregnancy; Z37.0 Single live birth
CPT/HCPCS: 01967; 36415; 59200; 85018; 85025; 86592; 86850; 86900; 86901; A9270; C1726; J2795; J7120

== ENCOUNTER 2025-07-17 16:06 | Emergency (ER) | payer BC, SELFPAY ==
--- OUTSIDE RECORDS SUMMARY | 2025-07-17 16:08 | XMS_ITS | Clinical Summary ---
Author Organization [employer] [facility] Address [address] [place] [id number] Care Team Providers Care Retail Sales Consultant Name Role Phone Ayala Martinez DO Primary Care Provider [phone] Allergies Active AllergyReactionsCriticalityNoted DateCommentsBee Venom Protein (Honey Bee)Throat Swelling/XurzwkgLjek32/13/2015 Medications No known medications Active Problems No known active problems Immunizations ImmunizationAdministration DatesNext DueDTaP-HIB (TriHIBIT)12/10/2005 SEgA-FxfD-NSB (Pediarix)02/27/2005,2004,2004Dtap-5 Pertussis Fqwpzqqn01/15/2010HIB HbOC (HibTITER)12/10/2005,02/27/2005,2004,2004 HPV 9 (Gardasil 9)04/23/2023,06/07/2019Hepatitis A (Peds)04/23/2023,02/22/2018 Hepatitis B, Djrltswgmta04/12/2005,2004,2004Inactivated Polio Jikbhvd4404/02/2010,02/27/2005,2004,2004Influenza Virus, Unspecified 05/05/2013Influenza, MTG016/12/2022,06/26/2016,07/31/2014MENINGOCOCCAL VACCINE 2 VIAL 2MO-55YO (MENVEO)04/23/2023,02/22/2018MMR04/02/2010,09/18/2005Pneumococcal conj 13-Valent (Prevnar 13)04/02/2010Polio Virus, Azddpqvieic85/15/2010Tdap 02/22/2018Tdap, Nlzgitckkhv20/15/2010,12/10/2005,02/27/2005,2004, 2004Varicella Oemwbed6404/02/2010,12/10/2005 Family History Medical HistoryRelationNameCommentsOtherMotherSVT and 1st degree AV block RelationNameStatusCommentsMotherAlive Social History Tobacco UseTypesPacks/DayYears UsedDateSmoking Tobacco: NeverSmokeless Tobacco: Never Tobacco Cessation:Counseling Given: Yes Alcohol UseStandard Drinks/WeekCommentsNot Asked0 (1 standard drink = 0.6 oz pure alcohol)occPHQ-2AnswerDate RecordedPHQ-2 TOTAL [id number] ConnectionsAnswerDate RecordedFrequency of Communication with Friends and Family Not on file07/15/2021Financial Resource StrainAnswerDate RecordedDifficulty of Paying Living ExpensesNot on file07/15/2021ifficulty of Paying Living Expenses Not on file07/15/2021Interpersonal SafetyAnswerDate RecordedAre you being hit, kicked, pushed or yelled at (see row info)?No06/27/2024Interpersonal Safety Abuse 12 - 18Not on file06/27/2024Interpersonal Safety Ambulatory Vulnerability Not on file06/27/2024CommentsNoSex and Gender InformationValueDate RecordedSex Assigned at BirthNot on fileLegal QfvUqvnyj64/20/2018 10:44 PM CDT Gender IdentityNot on fileSexual OrientationNot on file Last Filed Vital Signs Vital SignReadingTime TakenCommentsBlood Hcxritue347/7002 9:14 AM PRINCIPAL CONSULTING ENGINEER Ygwpt909808/25/2024 9:14 AM OVQNffsihhbglf83 ??C (98.6 ??F)06/27/2024 5:20 PM PRINCIPAL CONSULTING ENGINEER Respiratory Jost755108/28/2023 5:20 PM CSTOxygen Kgzkvfhbwk304%08/25/2024 9:14 AM CSTInhaled Oxygen Concentration--Cazwub09.1 kg (117 lb)08/25/2024 9:14 AM PRINCIPAL CONSULTING ENGINEER Hsipfk253.6 cm (5' 6)06/27/2024 7:11 PM CSTBody Mass Index-- Plan of Treatment Health MaintenanceDue DateLast DoneCommentsHIV for age 15-65009/02/2019BMI (ht and wt on same day) for age 18+2022Hepatitis C screening for age 18-79 2022epression screening for age 12+41, 06/07/2019, 06/07/2019, Additional history existsWell Child Check for age 3-04/23/2023, 03/03/2018COVID-19 vaccine series ( - 2024- season)2025 Influenza Vaccine (#1), 06/26/2016, 07/31/2014, Additional history existsChlamydia for age 16-241Tetanus booster , 04/02/2010, 12/10/2005, Additional history existsHepatitis B series for 19+Fwisuflol56/12/2005, 02/27/2005, 2004, Additional history existsPneumococcal series for age 6-49Aged Out04/02/2010No longer eligible based on patient's age to complete this topicHPV series for age 9-45Completed 04/23/2023, 06/07/2019Meningococcal series for age 11-96Ljomsqjnx47/06/2023, 02/22/2018 Procedures Procedure NamePriorityDate/TimeAssociated DiagnosisCommentsGC CHLAMYDIA TRACH TQCOIVEUB95/10/2024 7:06 PM PRINCIPAL CONSULTING ENGINEER from Last 3 Months or Most Recently Relevant to Health Maintenance Results * GC CHLAMYDIA TRACH PROBE (06/27/2024 7:06 PM PRINCIPAL CONSULTING ENGINEER)ComponentValueRef RangeTest MethodAnalysis TimePerformed AtPathologist SignatureCHLAMYDIA PROBENegative 06/28/2024 7:41 PM CSTSP[facility]AL LABORATORYN GONORRHOEAE PROBENegative 06/28/2024 7:41 PM CSTSP[facility] LAB[facility]ORYCENTRAL LABORATORYSpecimen (Source)Anatomical Location / LateralityCollection Method / VolumeCollection TimeReceived TimeOtherVAGINAL SWAB / UnknownNon-Blood / Ytjildi9406/27/2024 7:06 PM CST06/27/2024 7:58 PM PRINCIPAL CONSULTING ENGINEER Narrative Authorizing ProviderResult TypeResult StatusMargarita Mar Beckychristine PAMICROBIOLOGY Final ResultPerforming OrganizationAddressCity/State/ZIP CodePhone Number [facility] [address] [place] [id number], from Last 3 Months or Most Recently Relevant to Health Maintenance Insurance Care Teams Team MemberRelationshipSpecialtyStart DateEnd Ayala Martinez [place] [address] PCP - GeneralFamily Kvwrowbz09/6/23
--- OUTSIDE RECORDS SUMMARY | 2025-07-17 16:09 | XMS_ITS | Clinical Summary ---
Author Organization [facility] Address [address] [place] [address] Care Team Providers Care Custodian Athletic Equipment Name Role Phone Elsewhere, Pcp Primary Care Provider Unavailabl e Source Comments Patient records contain information from all sites at [facility]. For routine questions regarding patient records, call [phone] during business hours, M-F 8:00 AM - 5:00 PM Central Time. Record requests for emergency care only can be directed to [phone] at any time.[facility] Allergies Active AllergyReactionsCriticalityNoted DateCommentsBee Venom Protein (Honey Bee)Eroquxqy57/13/2015 Medications MedicationSigDispense QuantityRefillsLast FilledStart DateEnd DateStatus adfehkc-Hk-pbvw-FA 27 mg iron- 1 mg tablet Take 1 tablet by mouth daily.Active Active Problems ProblemNoted DateDiagnosed DateDepression Major One Episode Full Remission 01/25/2015 Overview (12/08/2016): Depression Major One Episode Full Remission CommentsYes Immunizations ImmunizationAdministration DatesNext DueDTaP, Elabhweobqk40/15/2010,12/10/2005, 02/27/2005,2004,2004HepB Pediatric/Yomqpacxif68/17/2005HepB, Pefgxaqqsom36/12/2005,2004,2004Hib (HbOC) (discontinued)12/10/2005, 02/27/2005,2004,2004IPV04/02/2010,02/27/2005,2004,2004 Influenza Split05/05/2013Influenza, Xejpnsfeuyf87/09/3449JAP4204/02/2010, 09/18/20055884POV75580695QKM6504/02/2010,12/10/2005influenza vaccine quad (FLUZONE/FLUARIX) (6 months and older)(PF)07/31/2014 Social History Tobacco UseTypesPacks/DayYears UsedDateSmoking Tobacco: NeverSmokeless Tobacco: Never Tobacco Cessation:Counseling Given: Not Answered Alcohol UseStandard Drinks/WeekCommentsNot Currently0 (1 standard drink = 0.6 oz pure alcohol)CommentsYesSex and Gender InformationValueDate RecordedSex Assigned at BirthNot on fileLegal IoaQfweyd61/03/2017 6:51 AM CSTGender Identity Not on fileSexual OrientationNot on file Last Filed Vital Signs Vital SignReadingTime TakenCommentsBlood Sfeocwzp373/6604 5:13 PM CDT Ewshi9592 5:13 PM EWFZtrzisprach65.8 ??C (98.2 ??F)10/24/2024 5:13 PM CDTRespiratory Kqlu487010/24/2024 5:13 PM CDTOxygen Fwsigesohf229%10/24/2024 5:13 PM CDTInhaled Oxygen Concentration--Bksfvn17 kg (123 lb 7.3 oz)10/24/2024 5:14 PM ENSAolhvi965.6 cm (5' 4)09/13/2017 7:34 PM CSTBody Mass Index-- Plan of Treatment Health MaintenanceDue DateLast DoneCommentsChlamydia and Gonorrhea Screening 2004Depression Monitoring (PHQ-9)2004HIV Xhvcfrjpt34/15/2005 Hepatitis C Kzliubnod19/15/2005TB Screening during Well Child Visit2004 Tobacco Cessation hilvwmahfx06/15/20051 week Well Child Check-Up month Well Child Check-Up month Well Child Check-Up month Well Child Check-Up month Well Child Check-Up month Well Child Check-Up month Well Child Check-Up year Well Child Check-Up month Well Child Check-Up year Well Child Check-Up08/02/2007Well Child Check-Up Completed in Past Year year Well Child Check-Up year Well Child Check-Up year Well Child Check-Up year Well Child Check-Up year Well Child Check-Up08/02/201412 year Well Child Check-Up08/02/201613 year Well Child Check-Up08/02/201714 year Well Child Check-Up08/02/2018Vision Screening during Well Child Visit year Well Child Check-Up year Well Child Check-Up year Well Child Check-Up year Well Child Check-Up4Depression Monitoring (PHQ-9 for quality tracking) year Well Child Check-Up08/02/2024[facility] Child Check-Up ([facility])5COVID-19 Vaccine ( - 2024- season)2025Influenza Vaccine (#1)2025 04/23/2023, 06/26/2016, 07/31/2014, Additional history existsDTaP,Tdap,and Td Vaccines (7 - Td or Tdap)8002/22/2018, 04/02/2010, 04/02/2010, Additional history existsRSV vaccine - (32-36 weeks) or 50+ years (1 - 1-dose 75+ series)2079Hepatitis B HvfcdoyhEvqsptbmz59/12/2005, 02/27/2005, 2004, Additional history existsIPV ZfuipgojGhppgtwom56/15/2010, 02/27/2005, 02/27/2005, Additional history existsPneumococcal vaccine (0-49 years)Aged Out04/02/2010No longer eligible based on patient's age to complete this topicVaricella ZynrptgnHrzwvgylb17/15/2010, 12/10/2005HPV VaccinesCompleted 04/23/2023, 06/07/2019Meningococcal BdrkulcAsgrnuqjo57/06/2023, 02/22/2018 Anemia/Iron Deficiency Screening During Well Child Visit (if High Risk Menstruating Female)Ifgqnanme81/16/2024 Procedures Procedure NamePriorityDate/TimeAssociated DiagnosisCommentsCBC WITH DIFFERENTIAL, BSTAT10/02/2023 7:14 PM CDT from Last 3 Months or Most Recently Relevant to Health Maintenance Results * (ABNORMAL) CBC with Differential, Blood (10/02/2023 7:14 PM CDT)ComponentValue Ref RangeTest MethodAnalysis TimePerformed AtPathologist SignatureHemoglobin 13.311.6 - 15.0 g/dL10/02/2023 7:22 PM JVXICHFTymerptpte65.035.5 - 44.9 % 10/02/2023 7:22 PM CDTCNFLErythrocytes4.443.92 - 5.13 x10(12)/L10/02/2023 7:22 PM HNDLBHXZTJ18.678.2 - 97.9 fL10/02/2023 7:22 PM CDTCNFLRBC Distrib Width11.8 (L)12.2 - 16.1 %10/02/2023 7:22 PM CDTCNFLPlatelet Hulpi930744 - 371 x10(9)/L 10/02/2023 7:22 PM CDTCNFLLeukocytes7.03.4 - 9.6 x10(9)/L10/02/2023 7:22 PM CDTCNFLNeutrophils4.241.56 - 6.45 x10(9)/L10/02/2023 7:22 PM CDTCNFL Lymphocytes1.980.95 - 3.07 x10(9)/L10/02/2023 7:22 PM CDTCNFLMonocytes0.580.26 - 0.81 x10(9)/L10/02/2023 7:22 PM CDTCNFLEosinophils0.130.03 - 0.48 x10(9)/L 10/02/2023 7:22 PM CDTCNFLBasophils0.040.01 - 0.08 x10(9)/L10/02/2023 7:22 PM CDTCNFLSpecimen (Source)Anatomical Location / LateralityCollection Method / VolumeCollection TimeReceived TimeBlood (Blood, Venous)10/02/2023 7:14 PM CDT 10/02/2023 7:18 PM CDT Narrative Authorizing ProviderResult TypeResult StatusKiprimoersara Moser APRN C.N.P.LAB BLOOD ADD-ONFinal ResultPerforming OrganizationAddressCity/State/ZIP CodePhone Number [facility] [address] [place] [phone], [place] CNFL [facility] in [address] [address] from Last 3 Months or Most Recently Relevant to [place] [address] Care Teams Team MemberRelationshipSpecialtyStart DateEnd Date Elsewhere, Pcp PCP - GeneralGeneral Practice09/04/19
--- OUTSIDE RECORDS SUMMARY | 2025-07-17 16:09 | XMS_ITS ---
Author Organization [facility] [facility] Source Produ ction (ClinicalSummary Clone) Address Unknown Care Team Providers Care School Traffic Supervisor Name Role Phone Unavailable Primary Care Physician Unavailab le Results * [UNITY] ANEUPLOIDY NIPT Performed by: [employer] Component Value Range Date Fraction 14.2% 11/03/2024 10:26 pm UTCSex Chromosome AneuploidyNOT QYACUQFC12/18/2025 10:26 pm UTCMonosomy XLOW RISK <1 in 10:26 pm UTCTrisomy 13LOW RISK <1 in 10:26 pm UTCTrisomy 18LOW RISK <1 in 10:26 pm UTCTrisomy 21LOW RISK <1 in 10:26 pm UTCFetal SexFEMALE 11/03/2024 10:26 pm UTCPregnancy MbfiqtekvOVWEXXUIT29/18/2025 10:26 pm UTCFor detailed report, see PDFSee PDF11/03/2024 10:26 pm UTC11/03/2024 10:26 pm UTC Social History Observation Value Start Date End Date
[2025-07-17 16:20] VITALS: BP 115/66; PULSE 109; RESP 18; TEMP 37.7; O2SAT 96; BMI 19.9
--- NOTE | 2025-07-17 16:36 | ED_ITS ---
HPI - General Adult General Chief complaint: Sore Throat Stated complaint: body aches, sore throat, hot/cold flashes Time Seen by Provider: 07/17/25 16:19 History of Present Illness HPI narrative: this 19-year-old female comes in reporting upper respiratory symptoms that began last evening. She reports cough, nasal congestion, and sore throat. She arrives here with temperature of 100? F and heart rate at 109. At the time of my examination her heart rate had normalized. Related Data Previous Rx's ?Medication ?Instructions ?Recorded oseltamivir 75 mg capsule (Tamiflu) 75 mg PO BID 5 day s #10 caps 07/17/25 Allergies Allergy/AdvReac Type Severity Reaction Status Date / Time No Known Drug Allergies Allergy Verified 07/17/25 16:26 Review of Systems Status of ROS: Reports: 10 or more systems reviewed and unremarkable except as noted in History and below Narrative: Constitutional: No fevers, no weight gain or loss. Eyes: No discharge. No vision changes. HENT: No ear pain. She reports sore throat and nasal congestion. Cardiovascular: No chest pain, no palpitations. Respiratory: No shortness of breath, no wheezes . Reports a cough. Gastrointestinal: No abdominal pain, no vomiting, no diarrhea. Genitourinary: No dysuria, no hematuria. Musculoskeletal: Normal range of motion. Skin: No rashes, no pruritis. Neurological: No dizziness, weakness, sensory change, speech change. Endo/Heme/Allergies: No bruising or bleeding. No polydipsia. Pysch: no suicidality, no anxiety, no insomnia. All other systems reviewed and are negative. PFSH [facility] Medical History Depression ?F32.A - Depression, unspecified (ICD-10) Social History Narrative: Occupation: Nurse's aide. Marital status: Single. Taoism/cultural needs: no. Chemical or radiation exposure: no. Pre- tobacco use: Vaping Pre- alcohol use: no. Current tobacco use: Yes, vaping Current alcohol use: no. Recreational drug use: no. Dietary restrictions: no. Blood transfusion acceptable in an emergency: yes. PSYCHOSOCIAL HISTORY: History of depression or currently depressed: Denies. Current or past physical, emotional, or sexual mistreatment: Denies. Problems that will make it hard to make it to appointments: Denies. What is your current living situation?: I presently have a place to live Problems where you live: no known problems In the past 12 months, utilities in danger of being shut off: no In past 12 months, lack of transportation kept you from medical appts, meetings, work, or getting things needed for daily living: no In the past 12 mos, have been you worried that your food would run out before you had money to buy more?: never true In the past 12 mos, the food you bought just didn't last and you didn't have money to buy more?: never true Smoking Status: Former smoker Do you use any of these nicotine containing products: Vaping Products Second hand tobacco smoke exposure: No How often do you have a drink containing alcohol: never How often do you have six or more drinks on one occasion: Never AUDIT-C Alcohol total score: 0 Non-prescribed substance use: denies use How often does anyone, including family, friends and others, physically hurt you : never How often does anyone, including family, friends and others, insult or talk down to you: never How often does anyone, including family, friends and others, threaten you with harm: never How often does anyone, including family, friends and others, scream or curse at you: never service: No Exam Narrative: Exam Narrative: Constitutional: Well-developed, well-nourished, no acute distress. HEENT: Normocephalic, atraumatic. Neck: Normal range of motion. Nontender. Supple. Heart: Regular. No murmurs. Normal rate. Intact distal pulses. Lungs: Clear to auscultation. No chest discomfort. No wheezes, rhonchi, or rales. Abdomen: Normal bowel sounds. Nontender. No rebound tenderness. Genitalia: Deferred. Back: No midline tenderness. Normal range of motion. Extremities: Normal range of motion. No injury. Skin: Intact. No rash. Warm. No erythema or pallor. Neurologic: No altered sensation. No weakness. Alert and oriented. Psychiatric: No suicidality. No anxiety or depression. No insomnia. Nursing notes and vitals signs are reviewed. Const: Vital Signs, click to edit/add: Vital Signs - 24 hr 07/17/25 16:20 Temperature 100 F H Pulse Rate [Pulse Oximeter] 109 H Respiratory Rate 18 Blood Pressure [Ri ght Upper Arm] 115/66 Pulse Oximetry 96 Course Vital Signs Vital signs: Initial Vital Signs Temperature 100 F H 07/17/25 16:20 Temperature Source Temporal Artery Scan 07/17/25 16:20 Pulse Rate 109 H 07/17/25 16:20 Respiratory Rate 18 07/17/25 16:20 Blood Pressure 115/66 07/17/25 16:20 Blood Pressure Mean 82 07/17/25 16:20 Pulse Oximetry 96 07/17/25 16:20 Vital Signs Temperature 100 F H 07/17/25 16:20 Pulse Rate 109 H 07/17/25 16:20 Respiratory Rate 18 07/17/25 16:20 Blood Pressure 115/66 07/17/25 16:20 Pulse Oximetry 96 07/17/25 16:20 Temperature 100 F H 07/17/25 16:20 Pulse Rate 109 H 07/17/25 16:20 Respiratory Rate 18 07/17/25 16:20 Blood Pressure 115/66 07/17/25 16:20 Pulse Oximetry 96 07/17/25 16:20 Medical Decision Making MDM Narrative Medical decision making narrative: This patient comes in with typical influenza symptoms and nasal pharyngeal swab does return positive for influenza A. Symptoms started last night so she is a candidate for Tamiflu. This was prescribed to her preferred pharmacy. Also recommended using pffb-bmw-fhjevos medicines as needed and directed. Lab Data Labs: Lab Results 07/17/25 Range/Units 16:32 SARS-CoV-2 (PCR) Negative SARS-CoV-2 (Negative) Influenza Type A (PCR) POSITIVE PCR FLU A A (Negative) Influenza Type B (PCR) Negative PCR FLU B (Negative) RSV (PCR) Negative PCR RSV (Negative) Group A Strep DNA NOT DETECTED (Not Detectd) Discharge Plan Discharge Clinical Impression: Influenza A Patient Disposition: Home, Self-Care Condition: Stable Additional Instructions: Take medication as prescribed. Use bzxp-fxk-tmyunxg medicines also as needed and directed. Follow up with MD return if worsening. Prescriptions: New oseltamivir [Tamiflu] 75 mg capsule 75 mg PO BID 5 Days Qty: 10 0RF Follow Up/Referrals: Provider,Not a Local [Primary Care Provider, Family Practice] Stand Alone [facility] Inst[facility]
[2025-07-17 17:04] LABS: Strep A DNA Probe* NOT DETECTED (Not Detectd)
[2025-07-17 17:17] LABS: PCR FLU A POSITIVE PCR FLU A (Negative); PCR FLU B Negative PCR FLU B (Negative); PCR RSV Negative PCR RSV (Negative); SARS PCR* Negative SARS-CoV-2 (Negative)
== END 2025-07-17 17:28 | disposition home or self-care (01) ==
PROVIDERS: Emergency Provider Emergency Medicine Emergency Medical Services
DX: J10.1 Influenza due to other identified influenza virus with other respiratory manifestations (principal); F17.290 Nicotine dependence, other tobacco product, uncomplicated
CPT/HCPCS: 87631; 87651; 99283; 99284